=== PATIENT | female | born 1960 | race Caucasian/White ===

== ENCOUNTER 2016-12-05 06:52 | Inpatient (IN) | payer OTHER ==
[~2016-12-05] VITALS: Ht 172.7 cm; Wt 55.3 kg
[2016-12-05] VITALS (9 sets, daily range): BP systolic 102–118; BP diastolic 55–65; PULSE 45–80; RESP 16–18; Ht 172.7 cm; Wt 55.3 kg
[~2016-12-05 06:52] MED LIST: FOLI-49 PO; LACT20SO2 PO; MULTI PO; NICO-512 TRANSDERM; PANT40TA4 PO; Thiamine Hcl PO
[2016-12-05] MEDS ORDERED: LORAZEPAM 2 MG INJ IV PRN (15:30)
[2016-12-05] MEDS ORDERED: NACL 0.9% 3 ML SYG IV SCH (15:30)
[2016-12-05] MEDS ORDERED: ONDANSETRON 4 MG INJ IV PRN (15:30)
[2016-12-05] MEDS ORDERED: BISACODYL (EC) 5 MG TAB PO PRN (15:30)
[2016-12-05] MEDS: FUROSEMIDE 20 MG TAB PO SCH (15:37)
[2016-12-05] MEDS: SPIRONOLACTONE 25 MG TAB PO SCH (15:37)
[2016-12-05] MEDS: THIAMINE 100 MG TAB PO SCH (15:37)
[2016-12-05] MEDS: MULTIVITAMINS THERAPEUTIC TAB PO SCH (15:37)
[2016-12-05] MEDS: PANTOPRAZOLE (EC) 40 MG TAB PO SCH (15:37)
[2016-12-05] MEDS: FOLIC ACID 1 MG TAB PO SCH (15:37)
[2016-12-05] MEDS: CHLORDIAZEPOXIDE 25 MG CAP PO SCH ×2 (15:38→20:11)
--- NOTE | 2016-12-05 15:38 | HP ---
Date/Time of Note Date/Time of Note DATE: 12/05/16 TIME: 15:22 Assessment/Plan VTE Prophylaxis VTE Prophylaxis Intervention: SCD's Lines/Catheters IV Catheter Type (from [facility]): Saline Lock Urinary Cath still in place: No Assessment/Plan Chief Complaint/Hosp Course Patient is a 56-year-old female with past medical history of liver cirrhosis who presents as a transfer from another facility for dizziness and weakness, found to be in mild hepatic encephalopathy. Assessment and problem list Dizziness Hepatic encephalopathy Cirrhosis Left ankle pain Knee pain Elevated ammonia thrombocytopenia Elevated transaminases Calcified granulomas Psoriasis Alcohol abuse History of hepatitis C Medical noncompliance Plan -According to outside records and lab values from previous hospital, patient's ammonia is elevated, will restart patient on lactulose as patient did not have a prescription for this. Patient only mildly encephalopathic, alert and oriented -We will confirm laboratory values with stat repeat labs here in this hospital, however will restart patient's home meds, patient does not know dose. -Patient's last drink was approximately 1-2 days ago, patient has a history of alcohol withdrawal, will start on prophylactic Librium, with as needed Ativan -X-ray of the feet and knees to evaluate for pain -Chest x-ray done at the other facility found calcified granulomas, patient has a history of smoking, will repeat 2 view chest x-ray. -Steroid cream for apparent psoriasis -Banana bag for alcoholism -As needed medication for pain -Reinforced to patient the importance of outpatient follow-up given her chronic medical issues. Problems: HPI/ROS Admit Date/Time Admit Date/Time Dec 05, 2016 at 09:58 Hx of Present Illness Patient is a 56-year-old female with past medical history of cirrhosis and hepatitis C who presents as a transfer from another facility originally admitted for weakness and dizziness. Upon evaluation of patient and lab work from previous hospital, patient appears to be suffering from hepatic encephalopathy as patient has not been getting her lactulose on a scheduled basis. Patient is resting in bed comfortably and only complains of occasional dizziness over the past month as well as weakness and shaking of her legs which prompted her to fall and injure her foot and knees. Patient does not follow up with her primary care provider on a normal basis and although she has a referral to a liver specialist, has transportation issues. Although patient has cirrhosis, patient continues to drink, last drink was 1 day ago and has a history of withdrawal when stopping. Patient denies headache, shortness of breath, abdominal pain, PMH: Psoriasis, liver cirrhosis, alcohol abuse, gastric bleed, medical noncompliance PSH: EGD with gastric clipping for bleed Social: Continues to smoke, continues to drink, denies drugs Meds: Spironolactone, propanolol, pantoprazole, Lasix, unknown dose ran out of lactulose PMH/Family/Social Social History Smoking Status: Current every day smoker Exam/Review of Systems Vital Signs Vitals Vital Signs Date Time Temp Pulse Resp B/P Pulse Ox O2 Delivery O2 Flow Rate FiO2 12/05/16 12:36 78 12/05/16 11:33 98.0 18 102/55 99 Exam Exam Physical exam General: Patient is laying in bed and answers questions appropriately Mentation: Patient is alert and oriented 4, Head: Normocephalic atraumatic Eyes: EOMI, pupils reactive to light Neck: Supple, nontender, midline Respiratory: Clear to auscultation bilaterally Cardiovascular: regular rate, no obvious murmurs Gastrointestinal: non-tender to palpation, bowel sounds heard. very mild distension Neurological: Moves all extremities spontaneously Skin: scale like lesions over body Medications Medications Current Medications Folic Acid (Folic Acid) 1 mg DAILY PO ; Start 12/05/16 at 15:00 Multivitamins Therapeutic (Theragran) 1 tab DAILY PO ; Start 12/05/16 at 15:00 Nicotine (Nicoderm 14 Mg/ 24hr) 1 patch DAILY TRANSDERM ; Start 12/05/16 at 16: 00 Pantoprazole (Protonix Tab) 40 mg DAILY@06 PO ; Start 12/05/16 at 15:00 Lactulose (Enulose) 20 gm Q6 PO ; Start 12/05/16 at 18:00 Thiamine HCl (Vitamin B1) 100 mg DAILY PO ; Start 12/05/16 at 15:00 Spironolactone (Aldactone) 25 mg DAILY PO ; Start 12/05/16 at 15:30 Propranolol HCl (Inderal) 10 mg TID PO ; Start 12/05/16 at 21:00 Furosemide (Lasix) 20 mg DAILY PO ; Start 12/05/16 at 15:30 Hydrocortisone (Hydrocortisone 2.5% Cr) 1 applic BID TOP ; Start 12/05/16 at 21: 00 Ondansetron HCl (Zofran Inj) 4 mg Q6H PRN IV NAUSEA AND/OR VOMITING; Start at 15:30 Morphine Sulfate (morphine) 2 mg Q4H PRN IV SEVERE PAIN LEVEL 7-10; Start 12/05 at 15:30 Bisacodyl (Dulcolax) 5 mg DAILY PRN PO CONSTIPATION; Start 12/05/16 at 15:30 RIYA CASTRO Dec 05, 2016 15:38
[2016-12-05] MEDS: morphine 2 MG INJ IV PRN ×2 (15:43→20:01)
[2016-12-05 16:05] LABS: ABNORMAL IP MESSAGE 1; BASOPHILS % 0.6 % (0.0-2.0); EOSINOPHILS # 0.1 10^3/ul (0.0-0.5); EOSINOPHILS % 2.3 % (0.0-7.0); HEMATOCRIT 34.9 % (37.0-47.0); HEMOGLOBIN 12.3 g/dl (12.0-16.0); LYMPHOCYTES # 1.8 10^3/ul (0.8-2.9); LYMPHOCYTES % 37.5 % (15.0-51.0); MEAN CORPUSCULAR HEMOGLOBIN 34.2 pg (29.0-33.0); MEAN CORPUSCULAR HGB CONC 35.2 g/dl (32.0-37.0); MEAN CORPUSCULAR VOLUME 96.9 fl (82.0-101.0); MEAN PLATELET VOLUME 11.3 fl (7.4-10.4); MONOCYTE # 0.9 10^3/ul (0.3-0.9); MONOCYTES % 17.8 % (0.0-11.0); NEUTROPHILS % 41.6 % (39.0-77.0); PLATELET COUNT 62 10^3/UL (140-415); RED CELL DISTRIBUTION WIDTH 19.7 % (11.5-14.5); WHITE BLOOD COUNT 4.8 10^3/ul (4.8-10.8)
[2016-12-05 16:10] LABS: POSITIVE DIFF @See below
[2016-12-05 16:26] LABS: ALBUMIN 3.2 g/dl (3.3-4.9); ALBUMIN/GLOBULIN RATIO 0.74; BILIRUBIN,DIRECT 0.1 mg/dl (0.00-0.20); BILIRUBIN,INDIRECT 2.8 mg/dl (0-1.1); BILIRUBIN,TOTAL 2.9 mg/dl (0.2-1.3); CALCIUM 8.3 mg/dl (8.4-10.2); CREATININE 0.58 mg/dl (0.44-1.00); POTASSIUM 3.4 mmol/L (3.5-5.1); TOTAL PROTEIN 7.5 g/dl (6.1-8.1)
[2016-12-05] MEDS: NICOTINE (14 MG/24 HR) PATCH TRANSDERM SCH (16:41)
[2016-12-05] MEDS ORDERED: POTASSIUM CHLORIDE 20 MEQ POWDER FOR ORAL SOLN PO ONE (17:30)
[2016-12-05 17:49] LABS: HAAIG REFLEX REFLEX FILED
[2016-12-05] MEDS: LACTULOSE 30ML CUP PO SCH (17:54)
[2016-12-05] MEDS: MULTIVITAMINS 10 ML, THIAMINE 100 MG, FOLIC ACID 1 MG in SOD CHLORIDE 0.9% 1,000 ML IVPB SCH (17:54)
[2016-12-05 18:58] LABS: HEPATITIS B CORE ANTIBODY NEGATIVE (NEGATIVE)
[2016-12-05] MEDS: HYDROCORTISONE 2.5% 20 GM CR TOP SCH (20:11)
[2016-12-05] MEDS: PROPRANOLOL 10 MG TAB PO SCH (20:11)
[2016-12-06] VITALS (11 sets, daily range): BP systolic 94–109; BP diastolic 54–65; PULSE 71–85; RESP 16–20
[2016-12-06] MEDS: LACTULOSE 30ML CUP PO SCH ×4 (06:00→17:21)
[2016-12-06] MEDS: PANTOPRAZOLE (EC) 40 MG TAB PO SCH (06:31)
[2016-12-06 06:38] LABS: ABNORMAL IP MESSAGE 1; BASOPHILS % 0.4 % (0.0-2.0); EOSINOPHILS # 0.1 10^3/ul (0.0-0.5); EOSINOPHILS % 1.7 % (0.0-7.0); HEMATOCRIT 35.5 % (37.0-47.0); HEMOGLOBIN 12.3 g/dl (12.0-16.0); LYMPHOCYTES # 1.8 10^3/ul (0.8-2.9); LYMPHOCYTES % 34.1 % (15.0-51.0); MEAN CORPUSCULAR HEMOGLOBIN 33.8 pg (29.0-33.0); MEAN CORPUSCULAR HGB CONC 34.6 g/dl (32.0-37.0); MEAN CORPUSCULAR VOLUME 97.5 fl (82.0-101.0); MEAN PLATELET VOLUME 11.2 fl (7.4-10.4); MONOCYTE # 0.9 10^3/ul (0.3-0.9); MONOCYTES % 16.1 % (0.0-11.0); NEUTROPHILS % 47.5 % (39.0-77.0); PLATELET COUNT 57 10^3/UL (140-415); RED BLOOD COUNT 3.64 10^6/ul (4.20-5.40); RED CELL DISTRIBUTION WIDTH 19.8 % (11.5-14.5); WHITE BLOOD COUNT 5.3 10^3/ul (4.8-10.8)
[2016-12-06 07:04] LABS: CALCIUM 8.3 mg/dl (8.4-10.2); CREATININE 0.59 mg/dl (0.44-1.00); MAGNESIUM 1.8 mg/dl (1.7-2.5); PHOSPHORUS 3.6 mg/dl (2.5-4.9); POTASSIUM 4.7 mmol/L (3.5-5.1)
[2016-12-06 07:08] LABS: POSITIVE DIFF @See below
[2016-12-06] MEDS: NICOTINE (14 MG/24 HR) PATCH TRANSDERM SCH (08:26)
[2016-12-06] MEDS: MULTIVITAMINS 10 ML, THIAMINE 100 MG, FOLIC ACID 1 MG in SOD CHLORIDE 0.9% 1,000 ML IVPB SCH (08:27)
[2016-12-06] MEDS: FUROSEMIDE 20 MG TAB PO SCH (08:27)
[2016-12-06] MEDS: THIAMINE 100 MG TAB PO SCH (08:27)
[2016-12-06] MEDS: MULTIVITAMINS THERAPEUTIC TAB PO SCH (08:27)
[2016-12-06] MEDS: SPIRONOLACTONE 25 MG TAB PO SCH (08:28)
[2016-12-06] MEDS: FOLIC ACID 1 MG TAB PO SCH (08:28)
[2016-12-06] MEDS: PROPRANOLOL 10 MG TAB PO SCH ×3 (08:31→20:55)
[2016-12-06] MEDS: CHLORDIAZEPOXIDE 25 MG CAP PO SCH ×3 (08:33→20:53)
[2016-12-06] MEDS: HYDROCORTISONE 2.5% 20 GM CR TOP SCH ×2 (08:38→20:55)
--- NOTE | 2016-12-06 13:22 | PN ---
Date/Time of Note Date/Time of Note DATE: 12/06/16 TIME: 13:20 Assessment/Plan VTE Prophylaxis VTE Prophylaxis Intervention: heparin Lines/Catheters IV Catheter Type (from [facility]): Peripheral IV Urinary Cath still in place: No Assessment/Plan Chief Complaint/Hosp Course Patient is a 56-year-old female with past medical history of liver cirrhosis who presents as a transfer from another facility for dizziness and weakness, found to be in mild hepatic encephalopathy. Assessment and problem list Dizziness Hepatic encephalopathy Cirrhosis Left ankle pain Knee pain Elevated ammonia thrombocytopenia Elevated transaminases Calcified granulomas Psoriasis Alcohol abuse History of hepatitis C Medical noncompliance Plan -patient's ammonia WNL here, patient got lactulose at the other facility. continue lactulose and other home med -Patient's last drink was approximately 1-2 days ago, patient has a history of alcohol withdrawal, on prophylactic Librium, with as needed Ativan -X-ray of the feet and knees to evaluate for pain, not done yesterday due to patient's inability to stand. -Chest x-ray done at the other facility found calcified granulomas, patient has a history of smoking, will repeat 2 view chest x-ray. not done yesterday -Steroid cream for apparent psoriasis -Banana bag for alcoholism -As needed medication for pain -PT/OT -Reinforced to patient the importance of outpatient follow-up given her chronic medical issues. DISPO: f/u xrays. if neg, plan DC once PT/OT sees patient. Problems: Subjective 24 Hr Interval Summary Free Text/Dictation no dizziness, still has leg pain Exam/Review of Systems Vital Signs Vitals Vital Signs Date Time Temp Pulse Resp B/P Pulse Ox O2 Delivery O2 Flow Rate FiO2 12/06/16 12:23 81 12/06/16 11:52 98.0 18 106/62 94 12/06/16 08:00 Non Rebreather Intake and Output 12/05/16 12/05/16 12/06/16 15:00 23:00 07:00 Intake Total 400 ml 1500 ml Balance 400 ml 1500 ml Exam Physical exam General: Patient is laying in bed and answers questions appropriately Mentation: Patient is alert and oriented 4, Head: Normocephalic atraumatic Eyes: EOMI, pupils reactive to light Neck: Supple, nontender, midline Respiratory: Clear to auscultation bilaterally Cardiovascular: regular rate, no obvious murmurs Gastrointestinal: non-tender to palpation, bowel sounds heard. very mild distension Neurological: Moves all extremities spontaneously Skin: scale like lesions over body Results Result Diagram: 12/06/16 0609 12/06/16 0609 Results 24 hrs Laboratory Tests Test 12/05/16 15:37 12/05/16 17:07 12/06/16 06:09 White Blood Count 4.8 5.3 Red Blood Count 3.60 L 3.64 L Hemoglobin 12.3 12.3 Hematocrit 34.9 L 35.5 L Mean Corpuscular Volume 96.9 97.5 Mean Corpuscular Hemoglobin 34.2 H 33.8 H Mean Corpuscular Hemoglobin Concent 35.2 34.6 Red Cell Distribution Width 19.7 H 19.8 H Platelet Count 62 L 57 L Mean Platelet Volume 11.3 #H 11.2 H Neutrophils % 41.6 47.5 Lymphocytes % 37.5 34.1 Monocytes % 17.8 H 16.1 H Eosinophils % 2.3 1.7 Basophils % 0.6 0.4 Nucleated Red Blood Cells % 0.0 0.0 Neutrophils # (Manual) 2 3 Lymphocytes # 1.8 1.8 Monocytes # 0.9 0.9 Eosinophils # 0.1 0.1 Basophils # 0.0 0.0 Nucleated Red Blood Cells # 0.0 0.0 Sodium Level 135 137 Potassium Level 3.4 L 4.7 Chloride Level 105 104 Carbon Dioxide Level 23 24 Anion Gap 10 14 Blood Urea Nitrogen 11 10 Creatinine 0.58 0.59 Glucose Level 175 132 # Calcium Level 8.3 L 8.3 L Total Bilirubin 2.9 H Direct Bilirubin 0.10 Indirect Bilirubin 2.8 H Aspartate Amino Transf (AST/SGOT) 104 H Alanine Aminotransferase (ALT/SGPT) 47 Alkaline Phosphatase 172 H Ammonia 29 Total Protein 7.5 Albumin 3.2 L Globulin 4.30 H Albumin/Globulin Ratio 0.74 Hepatitis B Surface Antigen NEGATIVE Hepatitis B Core Total Antibody NEGATIVE Hepatitis C Antibody REACTIVE H Phosphorus Level 3.6 Magnesium Level 1.8 Medications Medications Current Medications Folic Acid (Folic Acid) 1 mg DAILY PO Last administered on 12/06/16 08:28; Admin Dose 1 MG; Start 12/05/16 at 15:00 Multivitamins Therapeutic (Theragran) 1 tab DAILY PO Last administered on 08:27; Admin Dose 1 TAB; Start 12/05/16 at 15:00 Nicotine (Nicoderm 14 Mg/ 24hr) 1 patch DAILY TRANSDERM Last administered on 08:26; Admin Dose 1 PATCH; Start 12/05/16 at 16:00 Pantoprazole (Protonix Tab) 40 mg DAILY@06 PO Last administered on 12/06/16 06 :31; Admin Dose 40 MG; Start 12/05/16 at 15:00 Lactulose (Enulose) 20 gm Q6 PO Last administered on 12/06/16 13:03; Admin Dose 20 GM; Start 12/05/16 at 18:00 Thiamine HCl (Vitamin B1) 100 mg DAILY PO Last administered on 12/06/16 08:27 ; Admin Dose 100 MG; Start 12/05/16 at 15:00 Spironolactone (Aldactone) 25 mg DAILY PO Last administered on 12/06/16 08:28 ; Admin Dose 25 MG; Start 12/05/16 at 15:30 Propranolol HCl (Inderal) 10 mg TID PO Last administered on 12/06/16 13:04; Admin Dose 10 MG; Start 12/05/16 at 21:00 Furosemide (Lasix) 20 mg DAILY PO Last administered on 12/06/16 08:27; Admin Dose 20 MG; Start 12/05/16 at 15:30 Hydrocortisone (Hydrocortisone 2.5% Cr) 1 applic BID TOP Last administered on 08:38; Admin Dose 1 APPLIC; Start 12/05/16 at 21:00 Ondansetron HCl (Zofran Inj) 4 mg Q6H PRN IV NAUSEA AND/OR VOMITING; Start at 15:30 Morphine Sulfate (morphine) 2 mg Q4H PRN IV SEVERE PAIN LEVEL 7-10 Last administered on 12/05/16 20:01; Admin Dose 2 MG; Start 12/05/16 at 15:30 Bisacodyl (Dulcolax) 5 mg DAILY PRN PO CONSTIPATION; Start 12/05/16 at 15:30 Chlordiazepoxide (Librium) 25 mg TID PO Last administered on 12/06/16 13:03; Admin Dose 25 MG; Start 12/05/16 at 15:30 Lorazepam 2 mg 2 mg Q10MIN PRN IV seizure; Start 12/05/16 at 15:30 Multivitamins/ Thiamine HCl/ Folic Acid/Sodium Chloride (Mvi Adult/ Vitamin B1/ Folic Acid/NS) 1,011.2 ml @ 125 mls/ hr DAILY@09 IVPB Last administered on t 08:27; Admin Dose 125 MLS/HR; Start 12/05/16 at 17:30 RIYA CASTRO Dec 06, 2016 13:22
--- NOTE | 2016-12-06 14:04 | RADRPT ---
PROCEDURE: Bilateral knee radiographs CLINICAL INDICATION: Pain TECHNIQUE: Patent frontal, lateral and oblique radiographs of both knees COMPARISON: None FINDINGS: The knee joints are intact with anatomic alignment. No effusion is seen. There is no soft tissue s welling. The articular margins appear normal. There are no loose bodies. No abnormal articular or periarticular calcifications are present. There are no marginal erosions or osteophytes. There is no fracture. IMPRESSION: Normal bilateral knees .Mark Ramos MD, MD Date Time Electronically viewed and signed by .Mark Ramos MD, on 12/06/2016 14:04 .A/
--- NOTE | 2016-12-06 16:30 | RADRPT ---
PROCEDURE: XR bilateral Foot. CLINICAL INDICATION: Bilateral foot pain. TECHNIQUE: AP, lateral and oblique views of the bilateral feet were obtained. COMPARISON: There are no similar studies submitted for comparison. FINDINGS: Left foot: There is normal bone mineralization. There is mild hallux valgus deformity. There is no acute fracture or dislocation. No osseous erosions are identified. The joint spaces are within normal limits. There is a 7 mm linear density projecting over the second metatarsal of the left foot which is seen on the AP as well as the oblique view. There is no soft tissue swelling. Right foot: There is normal bone mineralization. There is mild hallux valgus deformity. There is no acute fracture or dislocation. There is an Achilles enthesophyte. No osseous erosions are identified. The joint spaces are within normal limits. There is no soft tissue swelling. IMPRESSION: No acute fracture or dislocation. Mild bilateral hallux valgus deformities. Right Achilles enthesophyte. 7 mm linear density projecting over the second metatarsal of the left foot which may represent a for eign body. Correlate with physical examination. Further findings as detailed above. RPTAT: AA .Deny Turner MD, Date Time Electronically viewed and signed by .Deny Turner MD, on 12/06/2016 16:30 .F/
[2016-12-06] MEDS: morphine 2 MG INJ IV PRN (20:53)
[2016-12-07] VITALS (11 sets, daily range): BP systolic 91–116; BP diastolic 51–69; PULSE 76–80; RESP 18–20
[2016-12-07] MEDS: LACTULOSE 30ML CUP PO SCH ×4 (05:41→17:15)
[2016-12-07] MEDS: PANTOPRAZOLE (EC) 40 MG TAB PO SCH (05:56)
[2016-12-07 07:08] LABS: ABNORMAL IP MESSAGE 1; BASOPHIL # 0.1 10^3/ul (0.0-0.1); BASOPHILS % 0.6 % (0.0-2.0); EOSINOPHILS # 0.1 10^3/ul (0.0-0.5); EOSINOPHILS % 1.7 % (0.0-7.0); HEMATOCRIT 33.1 % (37.0-47.0); HEMOGLOBIN 11.6 g/dl (12.0-16.0); LYMPHOCYTES # 2.4 10^3/ul (0.8-2.9); LYMPHOCYTES % 28.7 % (15.0-51.0); MEAN CORPUSCULAR HEMOGLOBIN 34.3 pg (29.0-33.0); MEAN CORPUSCULAR VOLUME 97.9 fl (82.0-101.0); MEAN PLATELET VOLUME 11.7 fl (7.4-10.4); MONOCYTE # 1.4 10^3/ul (0.3-0.9); NEUTROPHILS % 51.8 % (39.0-77.0); RED BLOOD COUNT 3.38 10^6/ul (4.20-5.40); RED CELL DISTRIBUTION WIDTH 19.5 % (11.5-14.5); WHITE BLOOD COUNT 8.3 10^3/ul (4.8-10.8)
[2016-12-07 07:26] LABS: PLATELET COUNT 54 10^3/UL (140-415); POSITIVE DIFF @See below
[2016-12-07 07:29] LABS: CALCIUM 7.9 mg/dl (8.4-10.2); CREATININE 0.49 mg/dl (0.44-1.00); MAGNESIUM 1.8 mg/dl (1.7-2.5); POTASSIUM 3.8 mmol/L (3.5-5.1)
[2016-12-07] MEDS: HYDROCORTISONE 2.5% 20 GM CR TOP SCH ×2 (08:26→22:33)
[2016-12-07] MEDS: MULTIVITAMINS 10 ML, THIAMINE 100 MG, FOLIC ACID 1 MG in SOD CHLORIDE 0.9% 1,000 ML IVPB SCH (08:27)
[2016-12-07] MEDS: NICOTINE (14 MG/24 HR) PATCH TRANSDERM SCH (08:27)
[2016-12-07] MEDS: THIAMINE 100 MG TAB PO SCH (08:28)
[2016-12-07] MEDS: SPIRONOLACTONE 25 MG TAB PO SCH (08:28)
[2016-12-07] MEDS: FUROSEMIDE 20 MG TAB PO SCH (08:28)
[2016-12-07] MEDS: FOLIC ACID 1 MG TAB PO SCH (08:28)
[2016-12-07] MEDS: MULTIVITAMINS THERAPEUTIC TAB PO SCH (08:28)
[2016-12-07] MEDS: PROPRANOLOL 10 MG TAB PO SCH ×3 (08:28→21:00)
[2016-12-07] MEDS: CHLORDIAZEPOXIDE 25 MG CAP PO SCH ×3 (08:29→21:22)
--- NOTE | 2016-12-07 13:27 | PN ---
Date/Time of Note Date/Time of Note DATE: 12/07/16 TIME: 13:24 Assessment/Plan VTE Prophylaxis VTE Prophylaxis Intervention: SCD's Lines/Catheters IV C[facility]ter Type (from [facility]): Saline Lock Urinary Cath still in place: No Assessment/Plan Chief Complaint/Hosp Course Patient is a 56-year-old female with past medical history of liver cirrhosis who presents as a transfer from another facility for dizziness and weakness, found to be in mild hepatic encephalopathy. Assessment and problem list Dizziness Hepatic encephalopathy Cirrhosis Left ankle pain Knee pain Elevated ammonia thrombocytopenia Elevated transaminases Calcified granulomas Psoriasis Alcohol abuse History of hepatitis C Medical noncompliance Plan -patient's ammonia WNL here, patient got lactulose at the other facility. continue lactulose and other home med -Patient's last drink was approximately 1-2 days ago, patient has a history of alcohol withdrawal, on prophylactic Librium, with as needed Ativan -X-ray of the feet and knees to evaluate for pain, no acute fracture. monitor and f/u outpatient for enthesophyte of achilles. -Chest x-ray done at the other facility found calcified granulomas, patient has a history of smoking, will repeat 2 view chest x-ray. not done yesterday again due to inability to stand. -Steroid cream for apparent psoriasis -Banana bag for alcoholism -As needed medication for pain -PT/OT for placement. -Reinforced to patient the importance of outpatient follow-up given her chronic medical issues. DISPO:plan DC once PT/OT sees patient as patient states can not ambulate/stand on her own. Problems: Subjective 24 Hr Interval Summary Free Text/Dictation pain still in feet no dizziness Exam/Review of Systems Vital Signs Vitals Vital Signs Date Time Temp Pulse Resp B/P Pulse Ox O2 Delivery O2 Flow Rate FiO2 12/07/16 08:25 80 12/07/16 07:50 99.0 20 96/55 98 12/06/16 08:00 Intake and Output 12/06/16 12/06/16 12/07/16 15:00 23:00 07:00 Intake Total 1650 ml 400 ml Balance 1650 ml 400 ml Exam Physical exam General: Patient is laying in bed and answers questions appropriately Mentation: Patient is alert and oriented 4, Head: Normocephalic atraumatic Eyes: EOMI, pupils reactive to light Neck: Supple, nontender, midline Respiratory: Clear to auscultation bilaterally Cardiovascular: regular rate, no obvious murmurs Gastrointestinal: non-tender to palpation, bowel sounds heard. very mild distension Neurological: Moves all extremities spontaneously Skin: scale like lesions over body Results Result Diagram: 12/07/16 0602 12/07/16 0602 Results 24 hrs Laboratory Tests Test 12/07/16 06:02 White Blood Count 8.3 # Red Blood Count 3.38 L Hemoglobin 11.6 L Hematocrit 33.1 L Mean Corpuscular Volume 97.9 Mean Corpuscular Hemoglobin 34.3 H Mean Corpuscular Hemoglobin Concent 35.0 Red Cell Distribution Width 19.5 H Platelet Count 54 L Mean Platelet Volume 11.7 H Neutrophils % 51.8 Lymphocytes % 28.7 Monocytes % 17.0 H Eosinophils % 1.7 Basophils % 0.6 Nucleated Red Blood Cells % 0.0 Neutrophils # (Manual) 4 Lymphocytes # 2.4 Monocytes # 1.4 H Eosinophils # 0.1 Basophils # 0.1 Nucleated Red Blood Cells # 0.0 Sodium Level 136 Potassium Level 3.8 Chloride Level 104 Carbon Dioxide Level 23 Anion Gap 13 Blood Urea Nitrogen 8 Creatinine 0.49 Glucose Level 94 Calcium Level 7.9 L Phosphorus Level 3.0 Magnesium Level 1.8 Medications Medications Current Medications Folic Acid (Folic Acid) 1 mg DAILY PO Last administered on 12/07/16 08:28; Admin Dose 1 MG; Start 12/05/16 at 15:00 Multivitamins Therapeutic (Theragran) 1 tab DAILY PO Last administered on 08:28; Admin Dose 1 TAB; Start 12/05/16 at 15:00 Nicotine (Nicoderm 14 Mg/ 24hr) 1 patch DAILY TRANSDERM Last administered on 08:27; Admin Dose 1 PATCH; Start 12/05/16 at 16:00 Pantoprazole (Protonix Tab) 40 mg DAILY@06 PO Last administered on 12/07/16 05 :56; Admin Dose 40 MG; Start 12/05/16 at 15:00 Lactulose (Enulose) 20 gm Q6 PO Last administered on 12/06/16 13:03; Admin Dose 20 GM; Start 12/05/16 at 18:00 Thiamine HCl (Vitamin B1) 100 mg DAILY PO Last administered on 12/07/16 08:28 ; Admin Dose 100 MG; Start 12/05/16 at 15:00 Spironolactone (Aldactone) 25 mg DAILY PO Last administered on 12/07/16 08:28 ; Admin Dose 25 MG; Start 12/05/16 at 15:30 Propranolol HCl (Inderal) 10 mg TID PO Last administered on 12/07/16 08:28; Admin Dose 10 MG; Start 12/05/16 at 21:00 Furosemide (Lasix) 20 mg DAILY PO Last administered on 12/07/16 08:28; Admin Dose 20 MG; Start 12/05/16 at 15:30 Hydrocortisone (Hydrocortisone 2.5% Cr) 1 applic BID TOP Last administered on 08:26; Admin Dose 1 APPLIC; Start 12/05/16 at 21:00 Ondansetron HCl (Zofran Inj) 4 mg Q6H PRN IV NAUSEA AND/OR VOMITING; Start at 15:30 Morphine Sulfate (morphine) 2 mg Q4H PRN IV SEVERE PAIN LEVEL 7-10 Last administered on 12/06/16 20:53; Admin Dose 2 MG; Start 12/05/16 at 15:30 Bisacodyl (Dulcolax) 5 mg DAILY PRN PO CONSTIPATION; Start 12/05/16 at 15:30 Chlordiazepoxide (Librium) 25 mg TID PO Last administered on 12/07/16 08:29; Admin Dose 25 MG; Start 12/05/16 at 15:30 Lorazepam 2 mg 2 mg Q10MIN PRN IV seizure; Start 12/05/16 at 15:30 Multivitamins/ Thiamine HCl/ Folic Acid/Sodium Chloride (Mvi Adult/ Vitamin B1/ Folic Acid/NS) 1,011.2 ml @ 125 mls/ hr DAILY@09 IVPB Last administered on 08:27; Admin Dose 125 MLS/HR; Start 12/05/16 at 17:30 RIYA CASTRO Dec 07, 2016 13:27
[2016-12-07] MEDS: morphine 2 MG INJ IV PRN ×2 (15:20→21:24)
--- NOTE | 2016-12-07 17:20 | RADRPT ---
PROCEDURE: XR Chest. CLINICAL INDICATION: Calcified granulomas. TECHNIQUE: PA and Lateral views of the chest were obtained. COMPARISON: Chest x-ray 12/05/2016 from . FINDINGS: The cardiomediastinal silhouette is within normal limits. Atherosclerotic calcifications of the thor acic aorta are identified. Multiple small calcified granulomas are again seen within the lungs bila terally, stable since the prior study. The lungs are otherwise clear. No signs of pleural fluid or pneumothorax are seen. The osseous structures and soft tissues are notable for minimal degenerative changes in the mid thoracic spine. IMPRESSION: 1. No evidence for acute cardiopulmonary disease. 2. Punctate small calcified granulomas in the lungs bilaterally. 3. Atherosclerotic calcifications of the thoracic aorta. RPTAT: HJAH .Shannan Boothe MD, Date Time Electronically viewed and signed by .Shannan Boothe MD, on 12/07/2016 17:20 .H/
[2016-12-08] VITALS (12 sets, daily range): BP systolic 73–103; BP diastolic 47–69; PULSE 78–80; RESP 18–20
[2016-12-08] MEDS: morphine 2 MG INJ IV PRN (04:24)
[2016-12-08] MEDS: LACTULOSE 30ML CUP PO SCH ×4 (06:00→18:00)
[2016-12-08] MEDS: PANTOPRAZOLE (EC) 40 MG TAB PO SCH (06:25)
[2016-12-08] MEDS: THIAMINE 100 MG TAB PO SCH (08:40)
[2016-12-08] MEDS: CHLORDIAZEPOXIDE 25 MG CAP PO SCH (08:40)
[2016-12-08] MEDS: MULTIVITAMINS THERAPEUTIC TAB PO SCH (08:40)
[2016-12-08] MEDS: NICOTINE (14 MG/24 HR) PATCH TRANSDERM SCH (08:40)
[2016-12-08] MEDS: FOLIC ACID 1 MG TAB PO SCH (08:40)
[2016-12-08] MEDS: MULTIVITAMINS 10 ML, THIAMINE 100 MG, FOLIC ACID 1 MG in SOD CHLORIDE 0.9% 1,000 ML IVPB SCH (08:41)
[2016-12-08] MEDS: HYDROCORTISONE 2.5% 20 GM CR TOP SCH ×2 (09:00→20:45)
[2016-12-08] MEDS: PROPRANOLOL 10 MG TAB PO SCH ×2 (09:00→20:46)
[2016-12-08] MEDS: FUROSEMIDE 20 MG TAB PO SCH (09:00)
[2016-12-08] MEDS: SPIRONOLACTONE 25 MG TAB PO SCH (09:00)
--- NOTE | 2016-12-08 12:19 | PN ---
Date/Time of Note Date/Time of Note DATE: 12/08/16 TIME: 12:16 Assessment/Plan VTE Prophylaxis VTE Prophylaxis Intervention: SCD's Lines/Catheters IV Catheter Type (from Nrsg): Saline Lock Urinary Cath still in place: No Assessment/Plan Assessment/Plan ASSESSMENT: Severe hypotension multifactorial Hepatic encephalopathy Decompnesated liver cirrhosis , h/o alcoholic liver cirrhosis Left ankle pain Knee pain Elevated ammonia and thrombocytopenia due to liver icrrhsosi Psoriasis Medical noncompliance Plan holding paramters for BP meds, including propranolol, lasix and aldactone D/c librium Albumin 25% IV Q 8 hr x 3 dose Midodrine 5mg BID SCD for DVT prophylaxis IV NS 500 cc bolus x 1 dose now Full Code Subjective 24 Hr Interval Summary Free Text/Dictation BP has been running very low, pt is lethragic, BP in systolic 70s Exam/Review of Systems Vital Signs Vitals Vital Signs Date Time Temp Pulse Resp B/P Pulse Ox O2 Delivery O2 Flow Rate FiO2 12/08/16 12:04 79 12/08/16 11:57 99.5 20 73/47 95 12/06/16 08:00 Intake and Output 12/07/16 12/07/16 12/08/16 15:00 23:00 07:00 Intake Total 2000 ml 800 ml Balance 2000 ml 800 ml Exam Constitutional: alert Psych: confusion Head: normocephalic Eyes: nl conjunctiva ENMT: nl external ears & nose Neck: supple Respiratory: clear to auscultation, diminished breath sounds, normal air movement Cardiovascular: nl pulses, regular rate and rhythm Gastrointestinal: non-tender, soft Musculoskeletal: nl extremities to inspection Skin: nl turgor Lymph: nl lymph nodes Results Result Diagram: 12/07/1602 12/07/16601 Medications Medications Current Medications Folic Acid (Folic Acid) 1 mg DAILY PO Last administered on 12/08/16 08:40; Admin Dose 1 MG; Start 12/05/16 at 15:00 Multivitamins Therapeutic (Theragran) 1 tab DAILY PO Last administered on 08:40; Admin Dose 1 TAB; Start 12/05/16 at 15:00 Nicotine (Nicoderm 14 Mg/ 24hr) 1 patch DAILY TRANSDERM Last administered on 08:40; Admin Dose 1 PATCH; Start 12/05/16 at 16:00 Pantoprazole (Protonix Tab) 40 mg DAILY@06 PO Last administered on 12/08/16 06 :25; Admin Dose 40 MG; Start 12/05/16 at 15:00 Lactulose (Enulose) 20 gm Q6 PO Last administered on 12/06/16 13:03; Admin Dose 20 GM; Start 12/05/16 at 18:00 Thiamine HCl (Vitamin B1) 100 mg DAILY PO Last administered on 12/08/16 08:40 ; Admin Dose 100 MG; Start 12/05/16 at 15:00 Spironolactone (Aldactone) 25 mg DAILY PO Last administered on 12/07/16 08:28 ; Admin Dose 25 MG; Start 12/05/16 at 15:30 Furosemide (Lasix) 20 mg DAILY PO Last administered on 12/07/16 08:28; Admin Dose 20 MG; Start 12/05/16 at 15:30 Hydrocortisone (Hydrocortisone 2.5% Cr) 1 applic BID TOP Last administered on 09:00; Admin Dose 1 APPLIC; Start 12/05/16 at 21:00 Ondansetron HCl (Zofran Inj) 4 mg Q6H PRN IV NAUSEA AND/OR VOMITING; Start at 15:30 Morphine Sulfate (morphine) 2 mg Q4H PRN IV SEVERE PAIN LEVEL 7-10 Last administered on 12/08/16 04:24; Admin Dose 2 MG; Start 12/05/16 at 15:30 Bisacodyl (Dulcolax) 5 mg DAILY PRN PO CONSTIPATION; Start 12/05/16 at 15:30 Lorazepam 2 mg 2 mg Q10MIN PRN IV seizure; Start 12/05/16 at 15:30 Multivitamins/ Thiamine HCl/ Folic Acid/Sodium Chloride (Mvi Adult/ Vitamin B1/ Folic Acid/NS) 1,011.2 ml @ 125 mls/ hr DAILY@09 IVPB Last administered on 08:41; Admin Dose 125 MLS/HR; Start 12/05/16 at 17:30 Propranolol HCl 10 mg 10 mg BID PO ; Start 12/08/16 at 21:00; Status UNV Albumin Human (Albumin Human 25%) 50 ml @ 100 mls/hr Q8H IV ; Start 12/08/16 at 12:30; Stop 12/09/16 at 04:59; Status UNV Midodrine (Proamatine) 5 mg ONCE ONCE PO ; Start 12/08/16 at 12:30; Stop at 12:31; Status UNV Midodrine (Proamatine) 5 mg BID@, PO ; Start 12/08/16 at 17:00; Status UNV RAFITA SUMMERS MD Dec 08, 2016 12:19
[2016-12-08] MEDS ORDERED: MIDODRINE 5 MG TAB PO ONE (12:30)
[2016-12-08] MEDS ORDERED: SOD CHLORIDE 0.9% 500 ML IV ONE (12:30)
[2016-12-08] MEDS: ALBUMIN HUMAN 25% 50 ML IV SCH ×2 (12:43→20:43)
[2016-12-08] MEDS: MIDODRINE 5 MG TAB PO SCH (17:05)
[2016-12-09] VITALS (13 sets, daily range): BP systolic 92–110; BP diastolic 54–67; PULSE 73–82; RESP 16–20
[2016-12-09] MEDS: ALBUMIN HUMAN 25% 50 ML IV SCH (05:34)
[2016-12-09] MEDS: PANTOPRAZOLE (EC) 40 MG TAB PO SCH (05:36)
[2016-12-09] MEDS: LACTULOSE 30ML CUP PO SCH ×4 (05:37→17:10)
[2016-12-09 07:06] LABS: ABNORMAL IP MESSAGE 1; BASOPHILS % 0.4 % (0.0-2.0); EOSINOPHILS # 0.1 10^3/ul (0.0-0.5); EOSINOPHILS % 2.3 % (0.0-7.0); HEMATOCRIT 31.9 % (37.0-47.0); HEMOGLOBIN 11.4 g/dl (12.0-16.0); LYMPHOCYTES % 39.4 % (15.0-51.0); MEAN CORPUSCULAR HEMOGLOBIN 35.1 pg (29.0-33.0); MEAN CORPUSCULAR HGB CONC 35.7 g/dl (32.0-37.0); MEAN CORPUSCULAR VOLUME 98.2 fl (82.0-101.0); MEAN PLATELET VOLUME 11.2 fl (7.4-10.4); MONOCYTE # 0.8 10^3/ul (0.3-0.9); MONOCYTES % 16.2 % (0.0-11.0); NEUTROPHILS % 41.5 % (39.0-77.0); PLATELET COUNT 62 10^3/UL (140-415); RED BLOOD COUNT 3.25 10^6/ul (4.20-5.40); RED CELL DISTRIBUTION WIDTH 19.1 % (11.5-14.5); WHITE BLOOD COUNT 5.2 10^3/ul (4.8-10.8)
[2016-12-09 07:08] LABS: POSITIVE DIFF @See below
[2016-12-09 07:22] LABS: ALBUMIN 2.5 g/dl (3.3-4.9); ALBUMIN/GLOBULIN RATIO 0.73; BILIRUBIN,INDIRECT 2.1 mg/dl (0-1.1); BILIRUBIN,TOTAL 2.1 mg/dl (0.2-1.3); CALCIUM 8.1 mg/dl (8.4-10.2); CREATININE 0.47 mg/dl (0.44-1.00); POTASSIUM 3.7 mmol/L (3.5-5.1); TOTAL PROTEIN 5.9 g/dl (6.1-8.1)
[2016-12-09 07:26] LABS: MAGNESIUM 1.7 mg/dl (1.7-2.5); PHOSPHORUS 3.1 mg/dl (2.5-4.9)
[2016-12-09 07:29] LABS: INR 1.94; PROTIME 22.3 Sec (12.2-14.2); PT RATIO 1.7
[2016-12-09 07:30] LABS: PARTIAL THROMBOPLASTIN TIME 36.3 Sec (25.0-35.0)
[2016-12-09] MEDS: MULTIVITAMINS 10 ML, THIAMINE 100 MG, FOLIC ACID 1 MG in SOD CHLORIDE 0.9% 1,000 ML IVPB SCH (08:36)
[2016-12-09] MEDS: FOLIC ACID 1 MG TAB PO SCH (08:37)
[2016-12-09] MEDS: NICOTINE (14 MG/24 HR) PATCH TRANSDERM SCH (08:37)
[2016-12-09] MEDS: THIAMINE 100 MG TAB PO SCH (08:37)
[2016-12-09] MEDS: MIDODRINE 5 MG TAB PO SCH ×2 (08:37→17:10)
[2016-12-09] MEDS: MULTIVITAMINS THERAPEUTIC TAB PO SCH (08:37)
[2016-12-09] MEDS: SPIRONOLACTONE 25 MG TAB PO SCH (08:38)
[2016-12-09] MEDS: FUROSEMIDE 20 MG TAB PO SCH (08:38)
[2016-12-09] MEDS: PROPRANOLOL 10 MG TAB PO SCH ×2 (08:38→20:18)
[2016-12-09] MEDS: HYDROCORTISONE 2.5% 20 GM CR TOP SCH ×2 (08:39→20:19)
--- NOTE | 2016-12-09 09:34 | RADRPT ---
PROCEDURE: XR Chest. CLINICAL INDICATION: Dyspnea TECHNIQUE: Single frontal chest x-ray. COMPARISON: 12/07/2016 FINDINGS: There is borderline cardiomegaly with central pulmonary vascular congestion. Numerous punctate calci fied nodules are seen throughout the lungs. There are no pleural effusions or pneumothoraces. There is aortic atherosclerosis. The osseous structures are intact. IMPRESSION: Borderline cardiomegaly with central pulmonary vascular congestion. Aortic atherosclerosis. RPTAT: BB .Nhan Abebe MD, MD Date Time Electronically viewed and signed by .Nhan Abebe MD, on 12/09/2016 09:34 .O/
[2016-12-09] MEDS: morphine 2 MG INJ IV PRN (12:40)
[2016-12-09] MEDS ORDERED: KETOROLAC 30 MG INJ IV ONE (20:00)
--- NOTE | 2016-12-09 22:27 | PN ---
Date/Time of Note Date/Time of Note DATE: 12/09/16 TIME: 22:25 Assessment/Plan VTE Prophylaxis VTE Prophylaxis Intervention: SCD's Lines/Catheters IV Catheter Type (from Nrs): Saline Lock Urinary Cath still in place: No Assessment/Plan Assessment/Plan Severe hypotension multifactorial Acute Hepatic encephalopathy Decompnesated liver cirrhosis , h/o alcoholic liver cirrhosis Left ankle pain Knee pain Elevated ammonia and thrombocytopenia due to liver icrrhsosi Psoriasis Medical noncompliance Plan holding paramters for BP meds, including propranolol, lasix and aldactone s/p Albumin 25% IV Q 8 hr x 3 dose Midodrine 5mg BID , now BP stable, PT to follow up SCD for DVT prophylaxis Full Code if stable in AM, will downgrade to med/surge floor Subjective 24 Hr Interval Summary Free Text/Dictation more stable BP, pt more alert, no complaitns Exam/Review of Systems Vital Signs Vitals Vital Signs Date Time Temp Pulse Resp B/P Pulse Ox O2 Delivery O2 Flow Rate FiO2 12/09/16 20:01 77 12/09/16 19:48 97.9 19 94/54 94 12/06/16 08:00 Intake and Output 12/08/16 12/08/16 12/09/16 15:00 23:00 07:00 Intake Total 1850 ml 600 ml Balance 1850 ml 600 ml Exam Constitutional: alert Head: normocephalic Eyes: nl conjunctiva ENMT: nl external ears & nose Neck: supple Respiratory: clear to auscultation, diminished breath sounds, normal air movement Cardiovascular: nl pulses, regular rate and rhythm Gastrointestinal: non-tender, soft Musculoskeletal: nl extremities to inspection Skin: nl turgor Lymph: nl lymph nodes Results Result Diagram: 12/09/16 0606 12/09/16 0606 Results 24 hrs Laboratory Tests Test 12/09/16 06:06 White Blood Count 5.2 # Red Blood Count 3.25 L Hemoglobin 11.4 L Hematocrit 31.9 L Mean Corpuscular Volume 98.2 Mean Corpuscular Hemoglobin 35.1 H Mean Corpuscular Hemoglobin Concent 35.7 Red Cell Distribution Width 19.1 H Platelet Count 62 L Mean Platelet Volume 11.2 H Neutrophils % 41.5 Lymphocytes % 39.4 Monocytes % 16.2 H Eosinophils % 2.3 Basophils % 0.4 Nucleated Red Blood Cells % 0.0 Neutrophils # (Manual) 2 Lymphocytes # 2.0 Monocytes # 0.8 Eosinophils # 0.1 Basophils # 0.0 Nucleated Red Blood Cells # 0.0 Prothrombin Time 22.3 H Prothrombin Time Ratio 1.7 INR International Normalized Ratio 1.94 Activated Partial Thromboplast Time 36.3 H Sodium Level 139 Potassium Level 3.7 Chloride Level 106 Carbon Dioxide Level 24 Anion Gap 13 Blood Urea Nitrogen 6 L Creatinine 0.47 Glucose Level 98 Calcium Level 8.1 L Phosphorus Level 3.1 Magnesium Level 1.7 Total Bilirubin 2.1 H Direct Bilirubin 0.00 Indirect Bilirubin 2.1 H Aspartate Amino Transf (AST/SGOT) 55 H Alanine Aminotransferase (ALT/SGPT) 33 Alkaline Phosphatase 153 H Ammonia 39 H Total Protein 5.9 L Albumin 2.5 L Globulin 3.40 H Albumin/Globulin Ratio 0.73 Medications Medications Current Medications Folic Acid (Folic Acid) 1 mg DAILY PO Last administered on 12/09/16 08:37; Admin Dose 1 MG; Start 12/05/16 at 15:00 Multivitamins Therapeutic (Theragran) 1 tab DAILY PO Last administered on 08:37; Admin Dose 1 TAB; Start 12/05/16 at 15:00 Nicotine (Nicoderm 14 Mg/ 24hr) 1 patch DAILY TRANSDERM Last administered on 08:37; Admin Dose 1 PATCH; Start 12/05/16 at 16:00 Pantoprazole (Protonix Tab) 40 mg DAILY@06 PO Last administered on 12/09/16 05 :36; Admin Dose 40 MG; Start 12/05/16 at 15:00 Lactulose (Enulose) 20 gm Q6 PO Last administered on 12/09/16 17:10; Admin Dose 20 GM; Start 12/05/16 at 18:00 Thiamine HCl (Vitamin B1) 100 mg DAILY PO Last administered on 12/09/16 08:37 ; Admin Dose 100 MG; Start 12/05/16 at 15:00 Spironolactone (Aldactone) 25 mg DAILY PO Last administered on 12/07/16 08:28 ; Admin Dose 25 MG; Start 12/05/16 at 15:30 Furosemide (Lasix) 20 mg DAILY PO Last administered on 12/07/16 08:28; Admin Dose 20 MG; Start 8/18/17 at 15:30 Hydrocortisone (Hydrocortisone 2.5% Cr) 1 applic BID TOP Last administered on 20:19; Admin Dose 1 APPLIC; Start 12/05/16 at 21:00 Ondansetron HCl (Zofran Inj) 4 mg Q6H PRN IV NAUSEA AND/OR VOMITING; Start at 15:30 Morphine Sulfate (morphine) 2 mg Q4H PRN IV SEVERE PAIN LEVEL 7-10 Last administered on 12/09/16 12:40; Admin Dose 2 MG; Start 12/05/16 at 15:30 Bisacodyl (Dulcolax) 5 mg DAILY PRN PO CONSTIPATION; Start 12/05/16 at 15:30 Lorazepam 2 mg 2 mg Q10MIN PRN IV seizure; Start 12/05/16 at 15:30 Multivitamins/ Thiamine HCl/ Folic Acid/Sodium Chloride (Mvi Adult/ Vitamin B1/ Folic Acid/NS) 1,011.2 ml @ 125 mls/ hr DAILY@09 IVPB Last administered on 08:36; Admin Dose 125 MLS/HR; Start 12/05/16 at 17:30 Propranolol HCl (Inderal) 10 mg BID PO ; Start 12/08/16 at 21:00 Midodrine (Proamatine) 5 mg BID@,17 PO Last administered on 12/09/16 17:10; Admin Dose 5 MG; Start 12/08/16 at 17:00 RAFITA SUMMERS MD Dec 09, 2016 22:27
[2016-12-10] VITALS (10 sets, daily range): BP systolic 97–120; BP diastolic 55–76; PULSE 74–81; RESP 16–19
[2016-12-10] MEDS: PANTOPRAZOLE (EC) 40 MG TAB PO SCH (05:45)
[2016-12-10] MEDS: LACTULOSE 30ML CUP PO SCH ×4 (05:46→17:21)
[2016-12-10 07:18] LABS: CALCIUM 8.4 mg/dl (8.4-10.2); CREATININE 0.54 mg/dl (0.44-1.00); POTASSIUM 4.3 mmol/L (3.5-5.1)
[2016-12-10] MEDS: THIAMINE 100 MG TAB PO SCH (08:29)
[2016-12-10] MEDS: PROPRANOLOL 10 MG TAB PO SCH ×2 (08:30→20:40)
[2016-12-10] MEDS: FUROSEMIDE 20 MG TAB PO SCH (08:30)
[2016-12-10] MEDS: MULTIVITAMINS THERAPEUTIC TAB PO SCH (08:30)
[2016-12-10] MEDS: FOLIC ACID 1 MG TAB PO SCH (08:31)
[2016-12-10] MEDS: SPIRONOLACTONE 25 MG TAB PO SCH (08:31)
[2016-12-10] MEDS: HYDROCORTISONE 2.5% 20 GM CR TOP SCH ×2 (08:31→20:41)
[2016-12-10] MEDS: MULTIVITAMINS 10 ML, THIAMINE 100 MG, FOLIC ACID 1 MG in SOD CHLORIDE 0.9% 1,000 ML IVPB SCH (08:32)
[2016-12-10] MEDS: NICOTINE (14 MG/24 HR) PATCH TRANSDERM SCH (08:34)
[2016-12-10] MEDS: MIDODRINE 5 MG TAB PO SCH ×2 (08:54→17:21)
[2016-12-10] MEDS: morphine 2 MG INJ IV PRN ×2 (12:28→20:01)
--- NOTE | 2016-12-10 13:13 | PN ---
Date/Time of Note Date/Time of Note DATE: 12/10/16 TIME: 13:12 Assessment/Plan VTE Prophylaxis VTE Prophylaxis Intervention: SCD's Lines/Catheters IV Catheter Type (from Nrs): Saline Lock Urinary Cath still in place: No Assessment/Plan Assessment/Plan Severe hypotension multifactorial Acute Hepatic encephalopathy Decompnesated liver cirrhosis , h/o alcoholic liver cirrhosis Left ankle pain Knee pain Elevated ammonia and thrombocytopenia due to liver icrrhsosi Psoriasis Medical noncompliance Plan holding paramters for BP meds, including propranolol, lasix and aldactone s/p Albumin 25% IV Q 8 hr x 3 dose Midodrine 5mg BID , now BP stable, PT to follow up SCD for DVT prophylaxis Full Code downgrade to med/surge floor Exam/Review of Systems Vital Signs Vitals Vital Signs Date Time Temp Pulse Resp B/P Pulse Ox O2 Delivery O2 Flow Rate FiO2 12/10/16 12:04 81 12/10/16 11:43 98.1 16 114/76 97 12/06/16 08:00 Intake and Output 12/09/16 12/09/16 12/10/16 15:00 23:00 07:00 Intake Total 1671.2 ml 280 ml Output Total 1 ml Balance 1670.2 ml 280 ml Exam Constitutional: alert Psych: confusion Head: normocephalic Eyes: nl conjunctiva ENMT: nl external ears & nose Neck: supple Respiratory: clear to auscultation, diminished breath sounds, normal air movement Cardiovascular: nl pulses, regular rate and rhythm Gastrointestinal: non-tender, soft Musculoskeletal: nl extremities to inspection Skin: nl turgor Lymph: nl lymph nodes Results Result Diagram: 12/09/16 0606 12/10/16 0623 Results 24 hrs Laboratory Tests Test 12/10/16 06:23 Sodium Level 141 Potassium Level 4.3 Chloride Level 106 Carbon Dioxide Level 26 Anion Gap 13 Blood Urea Nitrogen 10 Creatinine 0.54 Glucose Level 87 Calcium Level 8.4 Ammonia 44 H Medications Medications Current Medications Folic Acid (Folic Acid) 1 mg DAILY PO Last administered on 12/10/16 08:31; Admin Dose 1 MG; Start 12/05/16 at 15:00 Multivitamins Therapeutic (Theragran) 1 tab DAILY PO Last administered on 08:30; Admin Dose 1 TAB; Start 12/05/16 at 15:00 Nicotine (Nicoderm 14 Mg/ 24hr) 1 patch DAILY TRANSDERM Last administered on 08:34; Admin Dose 1 PATCH; Start 12/05/16 at 16:00 Pantoprazole (Protonix Tab) 40 mg DAILY@06 PO Last administered on 12/10/16 05 :45; Admin Dose 40 MG; Start 12/05/16 at 15:00 Lactulose (Enulose) 20 gm Q6 PO Last administered on 12/10/16 12:17; Admin Dose 20 GM; Start 12/05/16 at 18:00 Thiamine HCl (Vitamin B1) 100 mg DAILY PO Last administered on 12/10/16 08:29 ; Admin Dose 100 MG; Start 12/05/16 at 15:00 Spironolactone (Aldactone) 25 mg DAILY PO Last administered on 12/10/16 08:31 ; Admin Dose 25 MG; Start 12/05/16 at 15:30 Furosemide (Lasix) 20 mg DAILY PO Last administered on 12/10/16 08:30; Admin Dose 20 MG; Start 12/05/16 at 15:30 Hydrocortisone (Hydrocortisone 2.5% Cr) 1 applic BID TOP Last administered on 08:31; Admin Dose 1 APPLIC; Start 12/05/16 at 21:00 Ondansetron HCl (Zofran Inj) 4 mg Q6H PRN IV NAUSEA AND/OR VOMITING; Start at 15:30 Morphine Sulfate (morphine) 2 mg Q4H PRN IV SEVERE PAIN LEVEL 7-10 Last administered on 12/10/16 12:28; Admin Dose 2 MG; Start 12/05/16 at 15:30 Bisacodyl (Dulcolax) 5 mg DAILY PRN PO CONSTIPATION; Start 12/05/16 at 15:30 Lorazepam 2 mg 2 mg Q10MIN PRN IV seizure; Start 12/05/16 at 15:30 Multivitamins/ Thiamine HCl/ Folic Acid/Sodium Chloride (Mvi Adult/ Vitamin B1/ Folic Acid/NS) 1,011.2 ml @ 125 mls/ hr DAILY@09 IVPB Last administered on 08:32; Admin Dose 125 MLS/HR; Start 12/05/16 at 17:30 Propranolol HCl (Inderal) 10 mg BID PO Last administered on 12/10/16 08:30; Admin Dose 10 MG; Start 12/08/16 at 21:00 Midodrine (Proamatine) 5 mg BID@ PO Last administered on 12/10/16 08:54; Admin Dose 5 MG; Start 12/08/16 at 17:00 RAFITA SUMMERS MD Dec 10, 2016 13:13
[2016-12-11 00:02] VITALS: PULSE 78
[2016-12-11] MEDS: LACTULOSE 30ML CUP PO SCH ×5 (06:00→23:43)
[2016-12-11] MEDS: PANTOPRAZOLE (EC) 40 MG TAB PO SCH (06:04)
[2016-12-11 07:21] VITALS: BP 106/53; RESP 16
[2016-12-11] MEDS: MULTIVITAMINS 10 ML, THIAMINE 100 MG, FOLIC ACID 1 MG in SOD CHLORIDE 0.9% 1,000 ML IVPB SCH (08:14)
[2016-12-11] MEDS: MULTIVITAMINS THERAPEUTIC TAB PO SCH (08:15)
[2016-12-11] MEDS: FOLIC ACID 1 MG TAB PO SCH (08:15)
[2016-12-11] MEDS: THIAMINE 100 MG TAB PO SCH (08:15)
[2016-12-11] MEDS: PROPRANOLOL 10 MG TAB PO SCH ×2 (08:16→21:51)
[2016-12-11] MEDS: FUROSEMIDE 20 MG TAB PO SCH (08:17)
[2016-12-11] MEDS: SPIRONOLACTONE 25 MG TAB PO SCH (08:17)
[2016-12-11] MEDS: HYDROCORTISONE 2.5% 20 GM CR TOP SCH ×2 (08:17→21:51)
[2016-12-11] MEDS: NICOTINE (14 MG/24 HR) PATCH TRANSDERM SCH (08:17)
[2016-12-11] MEDS: MIDODRINE 5 MG TAB PO SCH ×2 (08:32→17:26)
[2016-12-11 19:45] VITALS: BP 106/59; RESP 16
--- NOTE | 2016-12-11 21:32 | PN ---
Date/Time of Note Date/Time of Note DATE: 12/11/16 TIME: 21:26 Assessment/Plan VTE Prophylaxis VTE Prophylaxis Intervention: SCD's Lines/Catheters IV Catheter Type (from Nrs): Saline Lock Urinary Cath still in place: No Assessment/Plan Assessment/Plan Severe hypotension multifactorial Acute Hepatic encephalopathy Decompnesated liver cirrhosis , h/o alcoholic liver cirrhosis Left ankle pain Knee pain Elevated ammonia and thrombocytopenia due to liver icrrhsosi Psoriasis Medical noncompliance Plan holding paramters for BP meds, including propranolol, lasix and aldactone s/p Albumin 25% IV Q 8 hr x 3 dose Midodrine 5mg BID , now BP stable, PT to follow up SCD for DVT prophylaxis Full Code anticipate d/c in next 1-2 days Exam/Review of Systems Vital Signs Vitals Vital Signs Date Time Temp Pulse Resp B/P Pulse Ox O2 Delivery O2 Flow Rate FiO2 12/11/16 19:45 98.8 82 16 106/59 94 Intake and Output 12/10/16 12/10/16 12/11/16 15:00 23:00 07:00 Intake Total 1720 ml 200 ml Balance 1720 ml 200 ml Exam Constitutional: alert Psych: confusion Head: normocephalic Eyes: nl conjunctiva ENMT: nl external ears & nose Neck: supple Respiratory: clear to auscultation, diminished breath sounds, normal air movement Cardiovascular: nl pulses, regular rate and rhythm Gastrointestinal: non-tender, soft Musculoskeletal: nl extremities to inspection Skin: nl turgor Lymph: nl lymph nodes Results Result Diagram: 12/09/16 0606 12/10/16 0623 Medications Medications Current Medications Folic Acid (Folic Acid) 1 mg DAILY PO Last administered on 12/11/16 08:15; Admin Dose 1 MG; Start 12/05/16 at 15:00 Multivitamins Therapeutic (Theragran) 1 tab DAILY PO Last administered on 08:15; Admin Dose 1 TAB; Start 12/05/16 at 15:00 Nicotine (Nicoderm 14 Mg/ 24hr) 1 patch DAILY TRANSDERM Last administered on 08:17; Admin Dose 1 PATCH; Start 12/05/16 at 16:00 Pantoprazole (Protonix Tab) 40 mg DAILY@06 PO Last administered on 12/11/16 06 :04; Admin Dose 40 MG; Start 12/05/16 at 15:00 Lactulose (Enulose) 20 gm Q6 PO Last administered on 12/10/16 17:21; Admin Dose 20 GM; Start 12/05/16 at 18:00 Thiamine HCl (Vitamin B1) 100 mg DAILY PO Last administered on 12/11/16 08:15 ; Admin Dose 100 MG; Start 12/05/16 at 15:00 Spironolactone (Aldactone) 25 mg DAILY PO Last administered on 12/11/16 08:17 ; Admin Dose 25 MG; Start 12/05/16 at 15:30 Furosemide (Lasix) 20 mg DAILY PO Last administered on 12/11/16 08:17; Admin Dose 20 MG; Start 12/05/16 at 15:30 Hydrocortisone (Hydrocortisone 2.5% Cr) 1 applic BID TOP Last administered on 08:17; Admin Dose 1 APPLIC; Start 12/05/16 at 21:00 Ondansetron HCl (Zofran Inj) 4 mg Q6H PRN IV NAUSEA AND/OR VOMITING; Start at 15:30 Morphine Sulfate (morphine) 2 mg Q4H PRN IV SEVERE PAIN LEVEL 7-10 Last administered on 12/10/16 20:01; Admin Dose 2 MG; Start 12/05/16 at 15:30 Bisacodyl (Dulcolax) 5 mg DAILY PRN PO CONSTIPATION; Start 12/05/16 at 15:30 Lorazepam 2 mg 2 mg Q10MIN PRN IV seizure; Start 12/05/16 at 15:30 Multivitamins/ Thiamine HCl/ Folic Acid/Sodium Chloride (Mvi Adult/ Vitamin B1/ Folic Acid/NS) 1,011.2 ml @ 125 mls/ hr DAILY@09 IVPB Last administered on 08:14; Admin Dose 125 MLS/HR; Start 12/05/16 at 17:30 Propranolol HCl (Inderal) 10 mg BID PO Last administered on 12/11/16 08:16; Admin Dose 10 MG; Start 12/08/16 at 21:00 Midodrine (Proamatine) 5 mg BID@09,17 PO Last administered on 12/11/16 17:26; Admin Dose 5 MG; Start 12/08/16 at 17:00 RAFITA SUMMERS MD Dec 11, 2016 21:32
[2016-12-12] VITALS (7 sets, daily range): BP systolic 96–100; BP diastolic 51–64; RESP 16–20
[2016-12-12] MEDS ORDERED: ACETAMINOPHEN 325 MG TAB PO PRN (01:00)
[2016-12-12] MEDS: PANTOPRAZOLE (EC) 40 MG TAB PO SCH (05:18)
[2016-12-12] MEDS: LACTULOSE 30ML CUP PO SCH ×2 (05:19→11:47)
[2016-12-12] MEDS: MULTIVITAMINS THERAPEUTIC TAB PO SCH (08:28)
[2016-12-12] MEDS: NICOTINE (14 MG/24 HR) PATCH TRANSDERM SCH (08:28)
[2016-12-12] MEDS: THIAMINE 100 MG TAB PO SCH (08:28)
[2016-12-12] MEDS: MIDODRINE 5 MG TAB PO SCH ×2 (08:29→17:29)
[2016-12-12] MEDS: SPIRONOLACTONE 25 MG TAB PO SCH (08:29)
[2016-12-12] MEDS: FUROSEMIDE 20 MG TAB PO SCH (08:29)
[2016-12-12] MEDS: FOLIC ACID 1 MG TAB PO SCH (08:29)
[2016-12-12] MEDS: HYDROCORTISONE 2.5% 20 GM CR TOP SCH ×2 (08:30→21:00)
[2016-12-12] MEDS: PROPRANOLOL 10 MG TAB PO SCH ×3 (08:30→22:30)
[2016-12-12] MEDS: morphine 2 MG INJ IV PRN ×2 (08:30→17:30)
[2016-12-12] MEDS: MULTIVITAMINS 10 ML, THIAMINE 100 MG, FOLIC ACID 1 MG in SOD CHLORIDE 0.9% 1,000 ML IVPB SCH (08:35)
--- NOTE | 2016-12-12 12:57 | PN ---
Date/Time of Note Date/Time of Note DATE: 12/12/16 TIME: 12:56 Assessment/Plan VTE Prophylaxis VTE Prophylaxis Intervention: SCD's Lines/Catheters IV Catheter Type (from Nrs): Peripheral IV Urinary Cath still in place: No Assessment/Plan Assessment/Plan Severe hypotension multifactorial Acute Hepatic encephalopathy Decompnesated liver cirrhosis , h/o alcoholic liver cirrhosis Left ankle pain Knee pain Elevated ammonia and thrombocytopenia due to liver icrrhsosi Psoriasis Medical noncompliance Plan holding paramters for BP meds, including propranolol, lasix and aldactone s/p Albumin 25% 50ml IV x 1 today then NS at 100 cc/ hr x 1 liter then stop Midodrine 5mg BID , BP borderline low SCD for DVT prophylaxis Full Code anticipate d/c in next 1-2 days Subjective 24 Hr Interval Summary Free Text/Dictation pt had a low grade fever overnight, BP low today AM, downgraded to med/surge bed but no bed available Exam/Review of Systems Vital Signs Vitals Vital Signs Date Time Temp Pulse Resp B/P Pulse Ox O2 Delivery O2 Flow Rate FiO2 12/12/16 11:32 98.2 69 16 96/55 97 Intake and Output 12/11/16 12/11/16 12/12/16 15:00 23:00 07:00 Intake Total 1740 ml 200 ml Output Total 400 ml Balance 1740 ml -200 ml Exam Constitutional: alert Psych: confusion Head: normocephalic Eyes: nl conjunctiva ENMT: nl external ears & nose Neck: supple Respiratory: clear to auscultation, diminished breath sounds, normal air movement Cardiovascular: nl pulses, regular rate and rhythm Gastrointestinal: non-tender, soft Musculoskeletal: nl extremities to inspection Skin: nl turgor Lymph: nl lymph nodes Results Result Diagram: 12/09/16 0606 12/10/16 0623 Medications Medications Current Medications Folic Acid (Folic Acid) 1 mg DAILY PO Last administered on 12/12/16 08:29; Admin Dose 1 MG; Start 12/05/16 at 15:00 Multivitamins Therapeutic (Theragran) 1 tab DAILY PO Last administered on 08:28; Admin Dose 1 TAB; Start 12/05/16 at 15:00 Nicotine (Nicoderm 14 Mg/ 24hr) 1 patch DAILY TRANSDERM Last administered on 08:28; Admin Dose 1 PATCH; Start 12/05/16 at 16:00 Pantoprazole (Protonix Tab) 40 mg DAILY@06 PO Last administered on 12/12/16 05 :18; Admin Dose 40 MG; Start 12/05/16 at 15:00 Lactulose (Enulose) 20 gm Q6 PO Last administered on 12/10/16 17:21; Admin Dose 20 GM; Start 12/05/16 at 18:00 Thiamine HCl (Vitamin B1) 100 mg DAILY PO Last administered on 12/12/16 08:28 ; Admin Dose 100 MG; Start 12/05/16 at 15:00 Spironolactone (Aldactone) 25 mg DAILY PO Last administered on 12/11/16 08:17 ; Admin Dose 25 MG; Start 12/05/16 at 15:30 Furosemide (Lasix) 20 mg DAILY PO Last administered on 12/12/16 08:29; Admin Dose 20 MG; Start 12/05/16 at 15:30 Hydrocortisone (Hydrocortisone 2.5% Cr) 1 applic BID TOP Last administered on 08:30; Admin Dose 1 APPLIC; Start 12/05/16 at 21:00 Ondansetron HCl (Zofran Inj) 4 mg Q6H PRN IV NAUSEA AND/OR VOMITING; Start at 15:30 Morphine Sulfate (morphine) 2 mg Q4H PRN IV SEVERE PAIN LEVEL 7-10 Last administered on 12/12/16 08:30; Admin Dose 2 MG; Start 12/05/16 at 15:30 Bisacodyl (Dulcolax) 5 mg DAILY PRN PO CONSTIPATION; Start 12/05/16 at 15:30 Lorazepam 2 mg 2 mg Q10MIN PRN IV seizure; Start 12/05/16 at 15:30 Multivitamins/ Thiamine HCl/ Folic Acid/Sodium Chloride (Mvi Adult/ Vitamin B1/ Folic Acid/NS) 1,011.2 ml @ 125 mls/ hr DAILY@09 IVPB Last administered on 08:35; Admin Dose 125 MLS/HR; Start 12/05/16 at 17:30 Propranolol HCl (Inderal) 10 mg BID PO Last administered on 12/11/16 21:51; Admin Dose 10 MG; Start 12/08/16 at 21:00 Midodrine (Proamatine) 5 mg BID@,17 PO Last administered on 12/12/16 08:29; Admin Dose 5 MG; Start 12/08/16 at 17:00 Acetaminophen (Tylenol Tab) 650 mg Q4H PRN PO PAIN AND OR ELEVATED TEMP Last administered on 12/12/16 01:09; Admin Dose 650 MG; Start 12/12/16 at 01:00 RAFITA SUMMERS MD Dec 12, 2016 12:57
[2016-12-12] MEDS ORDERED: ALBUMIN HUMAN 25% 50 ML IV ONE ×2 (13:00→22:30)
[2016-12-12] MEDS ORDERED: LACTULOSE 30ML CUP PO PRN (21:00)
[2016-12-13 02:00] VITALS: BP 99/56; PULSE 74; RESP 18
[2016-12-13] MEDS: SOD CHLORIDE 0.9% 1,000 ML IV SCH ×3 (02:00→09:00)
[2016-12-13] MEDS: PANTOPRAZOLE (EC) 40 MG TAB PO SCH (06:00)
[2016-12-13 08:17] VITALS: BP 110/65; RESP 18
[2016-12-13] MEDS: MULTIVITAMINS THERAPEUTIC TAB PO SCH (09:42)
[2016-12-13] MEDS: MIDODRINE 5 MG TAB PO SCH ×2 (09:42→18:42)
[2016-12-13] MEDS: THIAMINE 100 MG TAB PO SCH (09:43)
[2016-12-13] MEDS: FOLIC ACID 1 MG TAB PO SCH (09:43)
[2016-12-13] MEDS: PROPRANOLOL 10 MG TAB PO SCH ×2 (09:43→21:27)
[2016-12-13] MEDS: FUROSEMIDE 20 MG TAB PO SCH (09:44)
[2016-12-13] MEDS: SPIRONOLACTONE 25 MG TAB PO SCH (09:44)
[2016-12-13] MEDS: NICOTINE (14 MG/24 HR) PATCH TRANSDERM SCH (09:45)
[2016-12-13] MEDS: morphine 2 MG INJ IV PRN ×4 (09:54→23:02)
[2016-12-13] MEDS: HYDROCORTISONE 2.5% 20 GM CR TOP SCH ×2 (11:43→21:27)
[2016-12-13] MEDS: MULTIVITAMINS 10 ML, THIAMINE 100 MG, FOLIC ACID 1 MG in SOD CHLORIDE 0.9% 1,000 ML IVPB SCH (11:44)
[2016-12-13 14:31] VITALS: BP 95/57; RESP 18
--- NOTE | 2016-12-13 17:44 | PN ---
Date/Time of Note Date/Time of Note DATE: 12/13/16 TIME: 17:43 Assessment/Plan VTE Prophylaxis VTE Prophylaxis Intervention: SCD's Lines/Catheters IV Catheter Type (from Nrs): Peripheral IV Urinary Cath still in place: No Assessment/Plan Assessment/Plan 56 yo F with decompensated alcoholic cirrhosis admitted for hypotension and HE. HE resolved with lactulose. Suspect low BP from BP meds pt is on for her cirrhosis Plan check abd US to eval for ascites holding parameters for BP meds, including propranolol, lasix and aldactone Midodrine 5mg BID , BP borderline low SCD for DVT prophylaxis Full Code Subjective 24 Hr Interval Summary Free Text/Dictation Pt does not feel ready to go home yet Exam/Review of Systems Vital Signs Vitals Vital Signs Date Time Temp Pulse Resp B/P Pulse Ox O2 Delivery O2 Flow Rate FiO2 12/13/16 14:31 98.2 74 18 95/57 93 12/13/16 02:00 Room Air Intake and Output 12/12/16 12/12/16 12/13/16 15:00 23:00 07:00 Intake Total 1650 ml 500 ml Balance 1650 ml 500 ml Exam thin no mrg lungs clear mild abd distension no rashes Results Result Diagram: 12/09/16 0606 12/10/16 0623 Medications Medications Current Medications Folic Acid (Folic Acid) 1 mg DAILY PO Last administered on 12/13/16 09:43; Admin Dose 1 MG; Start 12/05/16 at 15:00 Multivitamins Therapeutic (Theragran) 1 tab DAILY PO Last administered on 09:42; Admin Dose 1 TAB; Start 12/05/16 at 15:00 Nicotine (Nicoderm 14 Mg/ 24hr) 1 patch DAILY TRANSDERM Last administered on 09:45; Admin Dose 1 PATCH; Start 12/05/16 at 16:00 Pantoprazole (Protonix Tab) 40 mg DAILY@06 PO Last administered on 12/13/16 06 :00; Admin Dose 40 MG; Start 12/05/16 at 15:00 Thiamine HCl (Vitamin B1) 100 mg DAILY PO Last administered on 12/13/16 09:43 ; Admin Dose 100 MG; Start 12/05/16 at 15:00 Spironolactone (Aldactone) 25 mg DAILY PO Last administered on 12/13/16 09:44 ; Admin Dose 25 MG; Start 12/05/16 at 15:30 Furosemide (Lasix) 20 mg DAILY PO Last administered on 12/13/16 09:44; Admin Dose 20 MG; Start 12/05/16 at 15:30 Hydrocortisone (Hydrocortisone 2.5% Cr) 1 applic BID TOP Last administered on 11:43; Admin Dose 1 APPLIC; Start 12/05/16 at 21:00 Ondansetron HCl (Zofran Inj) 4 mg Q6H PRN IV NAUSEA AND/OR VOMITING; Start at 15:30 Morphine Sulfate (morphine) 2 mg Q4H PRN IV SEVERE PAIN LEVEL 7-10 Last administered on 12/13/16 13:42; Admin Dose 2 MG; Start 12/05/16 at 15:30 Bisacodyl (Dulcolax) 5 mg DAILY PRN PO CONSTIPATION; Start 12/05/16 at 15:30 Lorazepam (Ativan) 2 mg Q10MIN PRN IV seizure; Start 12/05/16 at 15:30 Propranolol HCl (Inderal) 10 mg BID PO Last administered on 12/13/16 09:43; Admin Dose 10 MG; Start 12/08/16 at 21:00 Midodrine (Proamatine) 5 mg BID@17 PO Last administered on 12/13/16 09:42; Admin Dose 5 MG; Start 12/08/16 at 17:00 Acetaminophen (Tylenol Tab) 650 mg Q4H PRN PO PAIN AND OR ELEVATED TEMP Last administered on 12/12/16 01:09; Admin Dose 650 MG; Start 12/12/16 at 01:00 Lactulose (Enulose) 20 gm BID PRN PO constipation ; Start 12/12/16 at 21:00 AMINAH CHEN MD Dec 13, 2016 17:44 Admin Dose 5 MG; Start 12/08/16 at 17:00 Acetaminophen (Tylenol Tab) 650 mg Q4H PRN PO PAIN AND OR ELEVATED TEMP Last administered on 12/12/16 01:09; Admin Dose 650 MG; Start 12/12/16 at 01:00 Lactulose (Enulose) 20 gm BID PRN PO constipation ; Start 12/12/16 at 21:00 AMINAH CHEN MD Dec 13, 2016 17:44
[2016-12-13 19:54] VITALS: BP 121/69; RESP 18
[2016-12-14 01:26] VITALS: BP 101/62; PULSE 78; RESP 18
[2016-12-14] MEDS: morphine 2 MG INJ IV PRN ×5 (04:32→23:37)
[2016-12-14] MEDS: PANTOPRAZOLE (EC) 40 MG TAB PO SCH (06:45)
--- NOTE | 2016-12-14 06:59 | RADRPT ---
PROCEDURE: US Abdomen (Right upper quadrant) CLINICAL INDICATION: Abdominal pain. TECHNIQUE: Multiple real-time longitudinal and transverse images were acquired of the patient's ri ght upper quadrant utilizing a curved array transducer. COMPARISON: None. FINDINGS: Liver demonstrates coarsening of the liver echotexture with surface nodularity. No focal liver mass . Portal vein demonstrates hepatopetal flow. Gallbladder demonstrate multiple gallstones. There is mild gallbladder wall thickening. No intra- or extrahepatic biliary dilation. Pancreas is partially visualized and grossly unremarkable. Right kidney demonstrates no hydronephrosis or nephrolithiasis. There is small ascites. Proximal aorta and IVC are unremarkable. MEASUREMENTS: Liver: 15.5 cm Common Duct: 0.6 cm Right Kidney: 12.3 cm IMPRESSION: Liver cirrhosis with small upper abdominal ascites. Portal vein is patent with antegrade flow. Cholelithiasis. Gallbladder wall thickening is nonspecific in the setting of liver cirrhosis. RPTAT: EE .Luciano Yeung MD, Date Time Electronically viewed and signed by .Luciano Yeung MD, on 12/14/2016 07:05 .C/
[2016-12-14 07:18] VITALS: BP 95/58; RESP 18
[2016-12-14] MEDS: MULTIVITAMINS THERAPEUTIC TAB PO SCH (08:51)
[2016-12-14] MEDS: THIAMINE 100 MG TAB PO SCH (08:51)
[2016-12-14] MEDS: FOLIC ACID 1 MG TAB PO SCH (08:51)
[2016-12-14] MEDS: PROPRANOLOL 10 MG TAB PO SCH ×2 (08:52→21:00)
[2016-12-14] MEDS: FUROSEMIDE 20 MG TAB PO SCH (08:52)
[2016-12-14] MEDS: SPIRONOLACTONE 25 MG TAB PO SCH (08:53)
[2016-12-14] MEDS: MIDODRINE 5 MG TAB PO SCH ×2 (08:59→17:57)
[2016-12-14] MEDS: HYDROCORTISONE 2.5% 20 GM CR TOP SCH ×2 (08:59→21:47)
[2016-12-14] MEDS: NICOTINE (14 MG/24 HR) PATCH TRANSDERM SCH (09:00)
--- NOTE | 2016-12-14 12:49 | PN ---
Date/Time of Note Date/Time of Note DATE: 12/14/16 TIME: 12:48 Assessment/Plan VTE Prophylaxis VTE Prophylaxis Intervention: SCD's Lines/Catheters IV Catheter Type (from Nrs): Saline Lock Urinary Cath still in place: No Assessment/Plan Assessment/Plan 56 yo F with decompensated alcoholic cirrhosis admitted for hypotension and HE. HE resolved with lactulose. Suspect low BP from BP meds pt is on for her cirrhosis Plan abd US with just small ascities holding parameters for BP meds, including propranolol, lasix and aldactone Midodrine 5mg BID SCD for DVT prophylaxis likely discharge in AM Subjective 24 Hr Interval Summary Free Text/Dictation Requesting 1 more day in the hospital. Abd US with just small ascites Exam/Review of Systems Vital Signs Vitals Vital Signs Date Time Temp Pulse Resp B/P Pulse Ox O2 Delivery O2 Flow Rate FiO2 12/14/16 07:18 98.7 76 18 95/58 92 12/14/16 01:26 Room Air Intake and Output 12/13/16 12/13/16 12/14/16 15:00 23:00 07:00 Intake Total 880 ml 300 ml Output Total 1300 ml Balance -420 ml 300 ml Exam nad no mrg abd soft no rashes responds to questions appropriately Results Result Diagram: 12/10/16 0623 Medications Medications Current Medications Folic Acid (Folic Acid) 1 mg DAILY PO Last administered on 12/14/16 08:51; Admin Dose 1 MG; Start 12/05/16 at 15:00 Multivitamins Therapeutic (Theragran) 1 tab DAILY PO Last administered on 08:51; Admin Dose 1 TAB; Start 12/05/16 at 15:00 Nicotine (Nicoderm 14 Mg/ 24hr) 1 patch DAILY TRANSDERM Last administered on 09:00; Admin Dose 1 PATCH; Start 12/05/16 at 16:00 Pantoprazole (Protonix Tab) 40 mg DAILY@06 PO Last administered on 12/14/16 06 :45; Admin Dose 40 MG; Start 12/05/16 at 15:00 Thiamine HCl (Vitamin B1) 100 mg DAILY PO Last administered on 12/14/16 08:51 ; Admin Dose 100 MG; Start 12/05/16 at 15:00 Spironolactone (Aldactone) 25 mg DAILY PO Last administered on 12/13/16 09:44 ; Admin Dose 25 MG; Start 12/05/16 at 15:30 Furosemide (Lasix) 20 mg DAILY PO Last administered on 12/13/16 09:44; Admin Dose 20 MG; Start 12/05/16 at 15:30 Hydrocortisone (Hydrocortisone 2.5% Cr) 1 applic BID TOP Last administered on 08:59; Admin Dose 1 APPLIC; Start 12/05/16 at 21:00 Ondansetron HCl (Zofran Inj) 4 mg Q6H PRN IV NAUSEA AND/OR VOMITING; Start at 15:30 Morphine Sulfate (morphine) 2 mg Q4H PRN IV SEVERE PAIN LEVEL 7-10 Last administered on 12/14/16 10:04; Admin Dose 2 MG; Start 12/05/16 at 15:30 Bisacodyl (Dulcolax) 5 mg DAILY PRN PO CONSTIPATION; Start 12/05/16 at 15:30 Lorazepam (Ativan) 2 mg Q10MIN PRN IV seizure; Start 12/05/16 at 15:30 Propranolol HCl (Inderal) 10 mg BID PO Last administered on 12/13/16 21:27; Admin Dose 10 MG; Start 12/08/16 at 21:00 Midodrine (Proamatine) 5 mg BID@,17 PO Last administered on 12/14/16 08:59; Admin Dose 5 MG; Start 12/08/16 at 17:00 Acetaminophen (Tylenol Tab) 650 mg Q4H PRN PO PAIN AND OR ELEVATED TEMP Last administered on 12/12/16 01:09; Admin Dose 650 MG; Start 12/12/16 at 01:00 Lactulose (Enulose) 20 gm BID PRN PO constipation ; Start 12/12/16 at 21:00 AMINAH CHEN MD Dec 14, 2016 12:49
[2016-12-14 14:23] VITALS: BP 102/55; RESP 18
[2016-12-14 20:00] VITALS: BP 97/56; RESP 20
[2016-12-15 02:00] VITALS: BP 111/70; RESP 20
[2016-12-15] MEDS: PANTOPRAZOLE (EC) 40 MG TAB PO SCH (05:38)
[2016-12-15] MEDS: morphine 2 MG INJ IV PRN ×3 (05:39→20:27)
[2016-12-15 07:49] VITALS: BP 103/64; RESP 18
[2016-12-15] MEDS: SPIRONOLACTONE 25 MG TAB PO SCH (09:00)
[2016-12-15] MEDS: FUROSEMIDE 20 MG TAB PO SCH (09:00)
[2016-12-15] MEDS: PROPRANOLOL 10 MG TAB PO SCH ×2 (09:00→20:29)
[2016-12-15] MEDS: THIAMINE 100 MG TAB PO SCH (09:22)
[2016-12-15] MEDS: MULTIVITAMINS THERAPEUTIC TAB PO SCH (09:23)
[2016-12-15] MEDS: FOLIC ACID 1 MG TAB PO SCH (09:23)
[2016-12-15] MEDS: NICOTINE (14 MG/24 HR) PATCH TRANSDERM SCH (09:35)
[2016-12-15] MEDS: MIDODRINE 5 MG TAB PO SCH ×2 (09:35→18:06)
[2016-12-15] MEDS: HYDROCORTISONE 2.5% 20 GM CR TOP SCH ×2 (09:38→20:30)
--- NOTE | 2016-12-15 12:46 | PN ---
Date/Time of Note Date/Time of Note DATE: 12/15/16 TIME: 12:44 Assessment/Plan VTE Prophylaxis VTE Prophylaxis Intervention: SCD's Lines/Catheters IV [facility]from [facility] Saline Lock Urinary Cath still in place: No Assessment/Plan Chief Complaint/Hosp Course Assessment/Plan: 56 yo F with decompensated alcoholic cirrhosis admitted for hypotension and HE. HE appears resolved with lactulose. Suspect low BP from BP meds pt is on for her cirrhosis Plan abd US with just small ascities holding parameters for BP meds, including propranolol, lasix and aldactone Midodrine 5mg BID SCD for DVT prophylaxis Continue physical therapy, and check ammonia level today Problems: Subjective 24 Hr Interval Summary Free Text/Dictation No acute events overnight. Exam/Review of Systems Vital Signs Vitals Vital Signs Date Time Temp Pulse Resp B/P Pulse Ox O2 Delivery O2 Flow Rate FiO2 12/15/16 07:49 98.3 74 18 103/64 94 12/14/16 01:26 Room Air Intake and Output 12/14/16 12/14/16 12/15/16 15:00 23:00 07:00 Intake Total 1480 ml 500 ml Output Total 800 ml 1200 ml Balance 680 ml -700 ml Exam nad no mrg abd soft, slightly distended no rashes responds to questions appropriately Medications Medications Current Medications Folic Acid (Folic Acid) 1 mg DAILY PO Last administered on 12/15/16 09:23; Admin Dose 1 MG; Start 12/05/16 at 15:00 Multivitamins Therapeutic (Theragran) 1 tab DAILY PO Last administered on 09:23; Admin Dose 1 TAB; Start 12/05/16 at 15:00 Nicotine (Nicoderm 14 Mg/ 24hr) 1 patch DAILY TRANSDERM Last administered on 09:35; Admin Dose 1 PATCH; Start 12/05/16 at 16:00 Pantoprazole (Protonix Tab) 40 mg DAILY@06 PO Last administered on 12/15/16 05 :38; Admin Dose 40 MG; Start 12/05/16 at 15:00 Thiamine HCl (Vitamin B1) 100 mg DAILY PO Last administered on 12/15/16 09:22 ; Admin Dose 100 MG; Start 12/05/16 at 15:00 Spironolactone (Aldactone) 25 mg DAILY PO Last administered on 12/13/16 09:44 ; Admin Dose 25 MG; Start 12/05/16 at 15:30 Furosemide (Lasix) 20 mg DAILY PO Last administered on 12/13/16 09:44; Admin Dose 20 MG; Start 12/05/16 at 15:30 Hydrocortisone (Hydrocortisone 2.5% Cr) 1 applic BID TOP Last administered on 09:38; Admin Dose 1 APPLIC; Start 12/05/16 at 21:00 Ondansetron HCl (Zofran Inj) 4 mg Q6H PRN IV NAUSEA AND/OR VOMITING; Start at 15:30 Morphine Sulfate (morphine) 2 mg Q4H PRN IV SEVERE PAIN LEVEL 7-10 Last administered on 12/15/16 05:39; Admin Dose 2 MG; Start 12/05/16 at 15:30 Bisacodyl (Dulcolax) 5 mg DAILY PRN PO CONSTIPATION; Start 12/05/16 at 15:30 Lorazepam (Ativan) 2 mg Q10MIN PRN IV seizure; Start 12/05/16 at 15:30 Propranolol HCl (Inderal) 10 mg BID PO Last administered on 12/13/16 21:27; Admin Dose 10 MG; Start 12/08/16 at 21:00 Midodrine (Proamatine) 5 mg BID@ PO Last administered on 12/15/16 09:35; Admin Dose 5 MG; Start 12/08/16 at 17:00 Acetaminophen (Tylenol Tab) 650 mg Q4H PRN PO PAIN AND OR ELEVATED TEMP Last administered on 12/12/16 01:09; Admin Dose 650 MG; Start 12/12/16 at 01:00 Lactulose (Enulose) 20 gm BID PRN PO constipation ; Start 12/12/16 at 21:00; Stop 12/15/16 at 13:00 Lactulose (Enulose) 20 gm TID PO ; Start 12/15/16 at 13:00; Status GRACE RUSSELL Dec 15, 2016 12:46
[2016-12-15] MEDS: LACTULOSE 30ML CUP PO SCH ×2 (14:01→20:29)
[2016-12-15 19:54] VITALS: BP 116/71; RESP 20
[2016-12-16] MEDS: morphine 2 MG INJ IV PRN ×4 (00:49→22:15)
[2016-12-16 02:00] VITALS: BP 91/50; RESP 20
[2016-12-16] MEDS: PANTOPRAZOLE (EC) 40 MG TAB PO SCH (05:31)
[2016-12-16] MEDS: THIAMINE 100 MG TAB PO SCH (08:24)
[2016-12-16] MEDS: FOLIC ACID 1 MG TAB PO SCH (08:24)
[2016-12-16] MEDS: LACTULOSE 30ML CUP PO SCH ×4 (08:25→21:02)
[2016-12-16] MEDS: NICOTINE (14 MG/24 HR) PATCH TRANSDERM SCH (08:25)
[2016-12-16] MEDS: PROPRANOLOL 10 MG TAB PO SCH ×2 (08:25→21:01)
[2016-12-16] MEDS: MULTIVITAMINS THERAPEUTIC TAB PO SCH (08:25)
[2016-12-16] MEDS: SPIRONOLACTONE 25 MG TAB PO SCH (08:25)
[2016-12-16] MEDS: FUROSEMIDE 20 MG TAB PO SCH (08:26)
[2016-12-16] MEDS: HYDROCORTISONE 2.5% 20 GM CR TOP SCH ×2 (08:27→21:03)
[2016-12-16] MEDS: MIDODRINE 5 MG TAB PO SCH ×2 (08:32→17:23)
[2016-12-16 08:34] VITALS: BP 89/50; PULSE 83; RESP 16
--- NOTE | 2016-12-16 10:36 | PN ---
Date/Time of Note Date/Time of Note DATE: 12/16/16 TIME: 10:32 Assessment/Plan VTE Prophylaxis VTE Prophylaxis Intervention: SCD's Lines/Catheters IV Catheter Type (from Nrs): Saline Lock Urinary Cath still in place: No Assessment/Plan Chief Complaint/Hosp Course Assessment/Plan: 56 yo F with decompensated alcoholic cirrhosis admitted for hypotension and HE. Suspect low BP from BP meds pt is on for her cirrhosis Plan Given her elevated ammonia levels today(40 -> 79), will increase lactulose today and recheck ammonia in the morning. holding parameters for BP meds, including propranolol, lasix and aldactone Midodrine 5mg BID SCD for DVT prophylaxis Continue physical therapy Problems: Subjective 24 Hr Interval Summary Free Text/Dictation Patient asking about pain medications. Exam/Review of Systems Vital Signs Vitals Vital Signs Date Time Temp Pulse Resp B/P Pulse Ox O2 Delivery O2 Flow Rate FiO2 12/16/16 08:34 98.0 83 16 89/50 93 Room Air Intake and Output 12/15/16 12/15/16 12/16/16 15:00 23:00 07:00 Intake Total 1120 ml 800 ml Output Total 300 ml 1000 ml Balance 820 ml -200 ml Exam nad no mrg abd soft, slightly distended no rashes responds to questions appropriately Results Results 24 hrs Laboratory Tests Test 12/16/16 05:22 Ammonia 76 #H Medications Medications Current Medications Folic Acid (Folic Acid) 1 mg DAILY PO Last administered on 12/16/16 08:24; Admin Dose 1 MG; Start 12/05/16 at 15:00 Multivitamins Therapeutic (Theragran) 1 tab DAILY PO Last administered on 08:25; Admin Dose 1 TAB; Start 12/05/16 at 15:00 Nicotine (Nicoderm 14 Mg/ 24hr) 1 patch DAILY TRANSDERM Last administered on 08:25; Admin Dose 1 PATCH; Start 12/05/16 at 16:00 Pantoprazole (Protonix Tab) 40 mg DAILY@06 PO Last administered on 12/16/16 05 :31; Admin Dose 40 MG; Start 12/05/16 at 15:00 Thiamine HCl (Vitamin B1) 100 mg DAILY PO Last administered on 12/16/16 08:24 ; Admin Dose 100 MG; Start 8/18/17 at 15:00 Spironolactone (Aldactone) 25 mg DAILY PO Last administered on 12/13/16 09:44 ; Admin Dose 25 MG; Start 12/05/16 at 15:30 Furosemide (Lasix) 20 mg DAILY PO Last administered on 12/13/16 09:44; Admin Dose 20 MG; Start 12/05/16 at 15:30 Hydrocortisone (Hydrocortisone 2.5% Cr) 1 applic BID TOP Last administered on 08:27; Admin Dose 1 APPLIC; Start 12/05/16 at 21:00 Ondansetron HCl (Zofran Inj) 4 mg Q6H PRN IV NAUSEA AND/OR VOMITING; Start at 15:30 Morphine Sulfate (morphine) 2 mg Q4H PRN IV SEVERE PAIN LEVEL 7-10 Last administered on 12/16/16 06:22; Admin Dose 2 MG; Start 12/05/16 at 15:30 Bisacodyl (Dulcolax) 5 mg DAILY PRN PO CONSTIPATION; Start 12/05/16 at 15:30 Lorazepam (Ativan) 2 mg Q10MIN PRN IV seizure; Start 12/05/16 at 15:30 Propranolol HCl (Inderal) 10 mg BID PO Last administered on 12/13/16 21:27; Admin Dose 10 MG; Start 12/08/16 at 21:00 Midodrine (Proamatine) 5 mg BID@09,17 PO Last administered on 12/16/16 08:32; Admin Dose 5 MG; Start 12/08/16 at 17:00 Acetaminophen (Tylenol Tab) 650 mg Q4H PRN PO PAIN AND OR ELEVATED TEMP Last administered on 12/12/16 01:09; Admin Dose 650 MG; Start 12/12/16 at 01:00 Lactulose (Enulose) 30 gm QID PO ; Start 12/16/16 at 13:00; Status GRACE RUSSELL Dec 16, 2016 10:36
[2016-12-16] MEDS: HYDROCODONE/APAP (5/325) TAB PO PRN (11:44)
[2016-12-16 14:12] VITALS: BP 87/48; RESP 16
[2016-12-16 19:30] VITALS: BP 110/56; RESP 18
[2016-12-17 02:52] VITALS: BP 124/66; RESP 20
[2016-12-17] MEDS: morphine 2 MG INJ IV PRN ×5 (02:55→21:19)
[2016-12-17] MEDS: PANTOPRAZOLE (EC) 40 MG TAB PO SCH (05:36)
[2016-12-17 07:29] VITALS: BP 108/62; RESP 18
[2016-12-17] MEDS: PROPRANOLOL 10 MG TAB PO SCH ×2 (09:00→21:19)
[2016-12-17] MEDS: LACTULOSE 30ML CUP PO SCH ×5 (09:23→21:18)
[2016-12-17] MEDS: MULTIVITAMINS THERAPEUTIC TAB PO SCH (09:23)
[2016-12-17] MEDS: SPIRONOLACTONE 25 MG TAB PO SCH (09:24)
[2016-12-17] MEDS: NICOTINE (14 MG/24 HR) PATCH TRANSDERM SCH (09:24)
[2016-12-17] MEDS: FUROSEMIDE 20 MG TAB PO SCH (09:24)
[2016-12-17] MEDS: THIAMINE 100 MG TAB PO SCH (09:24)
[2016-12-17] MEDS: FOLIC ACID 1 MG TAB PO SCH (09:24)
[2016-12-17] MEDS: HYDROCORTISONE 2.5% 20 GM CR TOP SCH ×2 (09:26→21:20)
[2016-12-17] MEDS: MIDODRINE 5 MG TAB PO SCH ×2 (09:27→16:57)
--- NOTE | 2016-12-17 12:58 | PN ---
Date/Time of Note Date/Time of Note DATE: 12/17/16 TIME: 12:56 Assessment/Plan VTE Prophylaxis VTE Prophylaxis Intervention: SCD's Lines/Catheters IV Catheter Type (from Nrs): Saline Lock Urinary Cath still in place: No Assessment/Plan Chief Complaint/Hosp Course Assessment/Plan: 56 yo F with decompensated alcoholic cirrhosis admitted for hypotension and HE. Suspect low BP from BP meds pt is on for her cirrhosis Plan Ammonia levels have improved today (26), 2 new lactulose every 6 hours holding parameters for BP meds, including propranolol, lasix and aldactone Midodrine 5mg BID SCD for DVT prophylaxis Continue physical therapy Dispo: Likely home in 24 hours. Spoke with sister yesterday over the phone who lives in [place] and updated on plan of care Problems: Subjective 24 Hr Interval Summary Free Text/Dictation Patient took her lactulose yesterday. No acute events overnight. Exam/Review of Systems Vital Signs Vitals Vital Signs Date Time Temp Pulse Resp B/P Pulse Ox O2 Delivery O2 Flow Rate FiO2 12/17/16 07:29 99.0 75 18 108/62 94 12/16/16 08:34 Room Air Intake and Output 12/16/16 12/16/16 12/17/16 15:00 23:00 07:00 Intake Total 1120 ml Balance 1120 ml Exam nad no mrg abd soft, slightly distended no rashes responds to questions appropriately Results Results 24 hrs Laboratory Tests Test 12/17/16 05:58 Ammonia 26 # Medications Medications Current Medications Folic Acid (Folic Acid) 1 mg DAILY PO Last administered on 12/17/16 09:24; Admin Dose 1 MG; Start 12/05/16 at 15:00 Multivitamins Therapeutic (Theragran) 1 tab DAILY PO Last administered on 09:23; Admin Dose 1 TAB; Start 12/05/16 at 15:00 Nicotine (Nicoderm 14 Mg/ 24hr) 1 patch DAILY TRANSDERM Last administered on 09:24; Admin Dose 1 PATCH; Start 12/05/16 at 16:00 Pantoprazole (Protonix Tab) 40 mg DAILY@06 PO Last administered on 12/17/16 05 :36; Admin Dose 40 MG; Start 12/05/16 at 15:00 Thiamine HCl (Vitamin B1) 100 mg DAILY PO Last administered on 12/17/16 09:24 ; Admin Dose 100 MG; Start 12/05/16 at 15:00 Spironolactone (Aldactone) 25 mg DAILY PO Last administered on 12/17/16 09:24 ; Admin Dose 25 MG; Start 12/05/16 at 15:30 Furosemide (Lasix) 20 mg DAILY PO Last administered on 12/17/16 09:24; Admin Dose 20 MG; Start 12/05/16 at 15:30 Hydrocortisone (Hydrocortisone 2.5% Cr) 1 applic BID TOP Last administered on 09:26; Admin Dose 1 APPLIC; Start 12/05/16 at 21:00 Ondansetron HCl (Zofran Inj) 4 mg Q6H PRN IV NAUSEA AND/OR VOMITING; Start at 15:30 Morphine Sulfate (morphine) 2 mg Q4H PRN IV SEVERE PAIN LEVEL 7-10 Last administered on 12/17/16 11:06; Admin Dose 2 MG; Start 12/05/16 at 15:30 Bisacodyl (Dulcolax) 5 mg DAILY PRN PO CONSTIPATION; Start 12/05/16 at 15:30 Lorazepam (Ativan) 2 mg Q10MIN PRN IV seizure; Start 12/05/16 at 15:30 Propranolol HCl (Inderal) 10 mg BID PO Last administered on 12/16/16 21:01; Admin Dose 10 MG; Start 12/08/16 at 21:00 Midodrine (Proamatine) 5 mg BID@, PO Last administered on 12/17/16 09:27; Admin Dose 5 MG; Start 12/08/16 at 17:00 Acetaminophen (Tylenol Tab) 650 mg Q4H PRN PO PAIN AND OR ELEVATED TEMP Last administered on 12/12/16 01:09; Admin Dose 650 MG; Start 12/12/16 at 01:00 Lactulose (Enulose) 30 gm QID PO Last administered on 12/17/16 09:23; Admin Dose 30 GM; Start 12/16/16 at 13:00 Acetaminophen/ Hydrocodone Bitart ([place] (5/325)) 1 tab Q6H PRN PO PAIN LEVEL 7 -10 Last administered on 12/16/16 11:44; Admin Dose 1 TAB; Start 12/16/16 at 11 :00 GRACE NEAL Dec 17, 2016 12:58
[2016-12-17 14:10] VITALS: BP 109/66; RESP 18
[2016-12-17] MEDS: HYDROCODONE/APAP (5/325) TAB PO PRN (15:10)
[2016-12-17 20:19] VITALS: BP 114/67; RESP 18
[2016-12-18] MEDS: HYDROCODONE/APAP (5/325) TAB PO PRN ×3 (00:24→17:32)
[2016-12-18] MEDS: morphine 2 MG INJ IV PRN ×2 (02:17→06:26)
[2016-12-18 02:31] VITALS: BP 96/54; RESP 20
[2016-12-18] MEDS: PANTOPRAZOLE (EC) 40 MG TAB PO SCH (06:25)
[2016-12-18 08:06] VITALS: BP 92/52; RESP 18
[2016-12-18] MEDS: PROPRANOLOL 10 MG TAB PO SCH (09:00)
[2016-12-18] MEDS: FUROSEMIDE 20 MG TAB PO SCH (09:00)
[2016-12-18] MEDS: SPIRONOLACTONE 25 MG TAB PO SCH (09:00)
[2016-12-18] MEDS: LACTULOSE 30ML CUP PO SCH ×4 (09:00→17:29)
[2016-12-18] MEDS: MULTIVITAMINS THERAPEUTIC TAB PO SCH (09:37)
[2016-12-18] MEDS: NICOTINE (14 MG/24 HR) PATCH TRANSDERM SCH (09:37)
[2016-12-18] MEDS: THIAMINE 100 MG TAB PO SCH (09:37)
[2016-12-18] MEDS: FOLIC ACID 1 MG TAB PO SCH (09:39)
[2016-12-18] MEDS: HYDROCORTISONE 2.5% 20 GM CR TOP SCH (09:40)
[2016-12-18] MEDS: MIDODRINE 5 MG TAB PO SCH ×2 (09:43→17:29)
--- NOTE | 2016-12-18 10:37 | PDOCDIS ---
Discharge Instructions CONDITION Patient Condition: Stable HOME CARE INSTRUCTIONS: Special Diet: regular ACTIVITY: Activity Restrictions: Slowly Increase Activity FOLLOW UP/APPOINTMENTS Follow-up Plan Please take your medications as prescribed. Please follow-up with your regular doctor in the clinic in the next 1 week. GRACE NEAL Dec 18, 2016 10:37
[2016-12-18] MEDS ORDERED: MIDO5TAB19 PO (10:40)
[2016-12-18] MEDS ORDERED: LACT20SO2 PO (10:40)
[2016-12-18] MEDS ORDERED: OXYC-279 PO (10:40)
[2016-12-18] MEDS ORDERED: SPIR25TA PO (10:40)
[2016-12-18] MEDS ORDERED: LAS20 PO (10:40)
[2016-12-18] MEDS ORDERED: PROP10TA6 PO (10:40)
[2016-12-18] MEDS ORDERED: Nicotine (14 Mg/24 Hr) TRANSDERM (10:40)
--- NOTE | 2016-12-18 10:54 | DS ---
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 Patient found with hepatic encephalopathy as patient has not been getting her lactulose on a scheduled basis. Patient also complained of dizziness over the past month as well as weakness and shaking of her legs which prompted her to fall and injure her foot and knees. Patient does not follow up with her primary care provider on a normal basis and although she has a referral to a liver specialist, has transportation issues. Although patient has cirrhosis, patient continues to drink, last drink was 1 day ago and has a history of withdrawal when stopping. Patient was admitted to medical surgical unit, started on lactulose. Ammonia levels were trended as well. Patient needed encouragement to take her lactulose, she was also continued on propanolol and p.o. Lasix. Patient also received nicotine patch and education about smoking cessation. She was also started on Midodrin for low blood pressure. Over the course of her hospital stay her hepatic encephalopathy improved, her ammonia levels trended down to normal levels, she was able to ambulate, work with physical therapy, tolerated p.o. diet. She was strongly encouraged to adhere to her medications as an outpatient and to follow- up with her regular doctor which will provide her office phone number and address for new doctor in the area. She will be discharged home today improved condition. Her sister who lives in [place] was also updated over the phone and involved in her medical care as well. See below for full list of discharge medications. Assessment/Plan: 56 yo F with decompensated alcoholic cirrhosis admitted for hypotension and HE. Suspect low BP from BP meds pt is on for her cirrhosis Plan Ammonia levels have improved today (26), 2 new lactulose every 6 hours holding parameters for BP meds, including propranolol, lasix and aldactone Midodrine 5mg BID SCD for DVT prophylaxis Continue physical therapy Dispo: Likely home in 24 hours. Spoke with sister yesterday over the phone who lives in [place] and updated on plan of [facility] Meds Active Scripts Oxycodone HCl/Acetaminophen (Percocet 5-325 mg Tablet) 1 Each Tablet, 1 EACH PO Q6, #10 TAB Prov:VALGRACE S. 12/18/16 [Nicotine (14 Mg/24 Hr)] 1 PATCH PATCH No Conflict Check, 1 PATCH TRANSDERM DAILY, #30 2 Refills Prov:VALGRACE S. 12/18/16 Midodrine* (Midodrine*) 5 Mg Tablet, 5 MG PO BID@, #60 TAB 1 Refill Prov:GRACE NEAL S. 12/18/16 Furosemide (Lasix) 20 Mg Tab, 20 MG PO DAILY, #30 TAB 3 Refills Prov:GRACE NEAL S. 12/18/16 Propranolol Hcl* (Propranolol Hcl*) 10 Mg Tablet, 10 MG PO BID, #60 TAB 3 Refills Prov:GRACE NEAL S. 12/18/16 Spironolactone* (Aldactone*) 25 Mg Tablet, 25 MG PO DAILY, #30 TAB 3 Refills Prov:GRACE NEAL S. 12/18/16 Lactulose* (Lactulose*) 20 Gm/30 Ml Soln, 20 GM PO TID for 28 Days, #1 BOTTLE 6 Refills Prov:OLVINERVINGRACE S. 12/18/16 [Thiamine Hcl] 100 MG TAB No Conflict Check, 100 MG PO DAILY, TAB Prov:RUTH SRINIVASAN MD 04/13/15 Pantoprazole* (Pantoprazole*) 40 Mg Tabec, 40 MG PO DAILY@06 for 28 Days, BOTTLE Prov:RUTH SRINIVASAN MD 04/13/15 Multivitamins* (Theragran*) 1 Tab Tab, 1 TAB PO DAILY for 28 Days, TAB Prov:RUTH SRINIVASAN MD 04/13/15 Folic Acid* (Folic Acid*) 1 Mg Tab, 1 MG PO DAILY for 28 Days, TAB Prov:RUTH SRINIVASAN MD 04/13/15 Discontinued Scripts Nicotine* (Nicoderm* Patch) 1 Patch Patch, 1 PATCH TRANSDERM DAILY for 28 Days, PATCH Prov:RUTH SRINIVASAN MD 04/13/15 Primary Care Provider Not On Staff Doctor Time spent on discharge: > 30 minutes GRACE NEAL Dec 18, 2016 10:54
[2016-12-18 13:55] VITALS: BP 95/59; RESP 18
[2016-12-18 17:05] VITALS: BP 97/55; RESP 20
[2016-12-18 19:24] VITALS: BP 103/58; RESP 20
== END 2016-12-18 20:40 | disposition home or self-care (01) | DRG 434 ==
LOC: TEL 09:58 → MS2 12-12 18:43
PROVIDERS: ADMIT Internal Medicine; ATTEND Internal Medicine
DX: K70.40 Alcoholic hepatic failure without coma (principal); I95.9 Hypotension, unspecified; D69.6 Thrombocytopenia, unspecified; B19.20 Unspecified viral hepatitis C without hepatic coma; F10.10 Alcohol abuse, uncomplicated; Z91.14 Patient's other noncompliance with medication regimen; Z91.19 Patient's noncompliance with other medical treatment and regimen; Z72.0 Tobacco use; M25.572 Pain in left ankle and joints of left foot; L40.9 Psoriasis, unspecified; M25.562 Pain in left knee; M25.561 Pain in right knee
CPT/HCPCS: 71010; 71020; 76705; 80048; 80053; 82140; 83735; 84100; 85025; 85610; 85730; 86704; 86709; 86803; 87040; 87340; 97110; 97116; 97162; 97166; 97530; J1885; J2270; J3411; J7030; J7040; P9047

== ENCOUNTER 2017-04-21 15:02 | Emergency (ER) | END 2017-04-22 00:26 | disposition left against medical advice (07) ==

== ENCOUNTER 2017-04-23 00:26 | Inpatient (IN) | END 2017-04-25 00:24 | disposition EXP | DRG 368 ==